=== PATIENT | female | born 1980 | race Caucasian/White ===

== ENCOUNTER 2016-12-22 07:15 | Emergency (ER) | payer BC ==
[2016-12-22] MEDS ORDERED: SODIUM CHLORIDE 0.9% 1,000 ML IV STA ×2 (07:48)
--- NOTE | 2016-12-22 07:53 | ED ---
General Adult HPI - General Chief complaint: Abdominal Pain Stated complaint: Abd Pain Time Seen by Provider: 12/22/16 07:30 Source: patient, RN notes reviewed Mode of arrival: ambulatory Limitations: no limitations - History of Present Illness Initial comments: 36 yo female with history of Crohn's disease presents with abdominal pain nausea vomiting. Patient reports 0.4 history of upper abdominal pain and bloating. Patient has had 3 episodes of vomiting, decreased appetite. Last ate yesterday evening. Patient also reports 1 episode of diarrhea which was this morning. Denies fever. Denies chest pain or shortness of breath. Patient does have history of partial bowel obstruction, and states that she has been told she has thickening of the ileum. Patient states she had a CAT scan in November which also showed gallstones. Pain is primarily epigastric. Dull aching, somewhat crampy in nature. - Related Data Home Medications Medication Instructions Recorded Confirmed Adalimumab [Humira] 40 mg SQ FR 12/22/16 12/22/16 Dicyclomine [Bentyl] 20 mg PO QID PRN 12/22/16 12/22/16 Mesalamine [Lialda] 3.6 gm PO DAILY 12/22/16 12/22/16 Multivitamins, Thera [Multivitamin 1 tab PO DAILY 12/22/16 12/22/16 (formulary)] Previous Rx's Medication Instructions Recorded predniSONE 50 mg PO DAILY #5 tab 12/22/16 Allergies Allergy/AdvReac Type Severity Reaction Status Date / Time No Known Allergies Allergy Verified 12/22/16 08:11 Review of Systems ROS Statement: Those systems with pertinent positive or pertinent negative responses have been documented in the HPI. ROS Other: All systems not noted in ROS Statement are negative. Past Medical History Additional Past Medical History / Comment(s): crohns History of Any Multi-Drug Resistant Organisms: None Reported Past Surgical History: No Surgical Hx Reported Past Psychological History: No Psychological Hx Reported Smoking Status: Current every day smoker Past Alcohol Use History: None Reported Past Drug Use History: None Reported General Exam Limitations: no limitations General appearance: alert, in no apparent distress Head exam: Present: atraumatic, normocephalic Eye exam: Present: normal appearance, PERRL ENT exam: Present: mucous membranes dry Neck exam: Present: normal inspection, full ROM. Absent: tenderness Respiratory exam: Present: normal lung sounds bilaterally. Absent: respiratory distress Cardiovascular Exam: Present: regular rate, normal rhythm GI/Abdominal exam: Present: soft, tenderness (Mild generalized tenderness to palpation, worse in the epigastrium), normal bowel sounds. Absent: guarding, rebound Extremities exam: Present: normal capillary refill. Absent: pedal edema Neurological exam: Present: alert, oriented X3. Absent: motor sensory deficit Psychiatric exam: Present: normal affect, normal mood Skin exam: Present: warm, dry, intact. Absent: cyanosis, diaphoretic Course Vital Signs 12/22/16 12/22/16 12/22/16 07:16 08:54 10:05 Temperature 97.9 F Pulse Rate 115 H 89 Respiratory 20 19 18 Rate Blood Pressure 121/78 110/71 O2 Sat by Pulse 100 99 Oximetry - Reevaluation(s) Reevaluation #1: 12/22/16 11:09 On reevaluation, patient is feeling better, no episodes of nausea and vomiting. Patient does not want to be hospitalized. She would prefer to be discharged with outpatient follow-up Medical Decision Making - Medical Decision Making 36 yo female with history of Crohn's disease presenting with pain nausea vomiting and diarrhea. Patient states she had a episode diarrhea this morning. She is passing gas. She does have pain but does not want any medication. 3 episodes of vomiting. X-ray shows partial small bowel structure versus ileus, given the history of normal bowel movement this morning this is likely only partial small bowel. Fluctuates are within normal limits. Vital signs are stable after IV hydration. Patient is encouraged to remain for IV hydration and GI consult. Patient would prefer to be discharged home with outpatient follow-up. She will be started on course of steroids. Patient states she will return the emergency Department with decrease in flatus or bowel movements as well as nausea vomiting, or fever. Patient is observed in the emergency department for 4 hours, no vomiting, no nausea. Diagnosis: Crohn's flare, partial small bowel structure - Lab Data Result diagrams: 12/22/16 07:58 12/22/16 07:58 Lab Results 12/22/16 12/22/16 12/22/16 Range/Units 07:58 07:58 07:58 WBC 12.7 H (3.8-10.6) k/uL RBC 4.69 (3.80-5.40) m/uL Hgb 14.2 (11.4-16.0) gm/dL Hct 43.7 (34.0-46.0) % MCV 93.2 (80.0-100.0) fL MCH 30.2 (25.0-35.0) pg MCHC 32.4 (31.0-37.0) g/dL RDW 14.0 (11.5-15.5) % Plt Count 357 (150-450) k/uL Neutrophils % 85 % Lymphocytes % 10 % Monocytes % 4 % Eosinophils % 1 % Basophils % 0 % Neutrophils # 10.8 H (1.3-7.7) k/uL Lymphocytes # 1.3 (1.0-4.8) k/uL Monocytes # 0.5 (0-1.0) k/uL Eosinophils # 0.1 (0-0.7) k/uL Basophils # 0.0 (0-0.2) k/uL Sodium 139 (137-145) mmol/L Potassium 4.7 (3.5-5.1) mmol/L Chloride 106 (98-107) mmol/L Carbon Dioxide 25 (22-30) mmol/L Anion Gap 8 mmol/L BUN 7 (7-17) mg/dL Creatinine 0.50 L (0.52-1.04) mg/dL Est GFR (MDRD) Af Amer >60 (>60 ml/min/1.73 sqM) Est GFR (MDRD) Non-Af >60 (>60 ml/min/1.73 sqM) Glucose 90 (74-99) mg/dL Plasma Lactic Acid Josh (0.7-2.0) mmol/L Calcium 9.0 (8.4-10.2) mg/dL Total Bilirubin 0.2 (0.2-1.3) mg/dL AST 16 (14-36) U/L ALT 27 (9-52) U/L Alkaline Phosphatase 63 (38-126) U/L Total Protein 5.6 L (6.3-8.2) g/dL Albumin 3.2 L (3.5-5.0) g/dL Amylase <30 L (30-110) U/L Lipase 35 (23-300) U/L Urine Color Urine Appearance (Clear) Urine pH (5.0-8.0) Ur Specific [place] (1.001-1.035) Urine Protein (Negative) Urine Glucose (UA) (Negative) Urine Ketones (Negative) Urine Blood (Negative) Urine Nitrite (Negative) Urine Bilirubin (Negative) Urine Urobilinogen (<2.0) mg/dL Ur Leukocyte Esterase (Negative) Urine RBC (0-5) /hpf Urine WBC (0-5) /hpf Ur Squamous Epith Cells (0-4) /hpf Urine Bacteria (None) /hpf Urine Mucus (None) /hpf Urine HCG, Qual Not Detected (Not Detectd) 12/22/16 12/22/16 Range/Units 07:58 07:58 WBC (3.8-10.6) k/uL RBC (3.80-5.40) m/uL Hgb (11.4-16.0) gm/dL Hct (34.0-46.0) % MCV (80.0-100.0) fL MCH (25.0-35.0) pg MCHC (31.0-37.0) g/dL RDW (11.5-15.5) % Plt Count (150-450) k/uL Neutrophils % % Lymphocytes % % Monocytes % % Eosinophils % % Basophils % % Neutrophils # (1.3-7.7) k/uL Lymphocytes # (1.0-4.8) k/uL Monocytes # (0-1.0) k/uL Eosinophils # (0-0.7) k/uL Basophils # (0-0.2) k/uL Sodium (137-145) mmol/L Potassium (3.5-5.1) mmol/L Chloride (98-107) mmol/L Carbon Dioxide (22-30) mmol/L Anion Gap mmol/L BUN (7-17) mg/dL Creatinine (0.52-1.04) mg/dL Est GFR (MDRD) Af Amer (>60 ml/min/1.73 sqM) Est GFR (MDRD) Non-Af (>60 ml/min/1.73 sqM) Glucose (74-99) mg/dL Plasma Lactic Acid Josh 1.2 (0.7-2.0) mmol/L Calcium (8.4-10.2) mg/dL Total Bilirubin (0.2-1.3) mg/dL AST (14-36) U/L ALT (9-52) U/L Alkaline Phosphatase (38-126) U/L Total Protein (6.3-8.2) g/dL Albumin (3.5-5.0) g/dL Amylase (30-110) U/L Lipase (23-300) U/L Urine Color Yellow Urine Appearance Cloudy H (Clear) Urine pH 7.5 (5.0-8.0) Ur Specific [place] 1.021 (1.001-1.035) Urine Protein Trace H (Negative) Urine Glucose (UA) Negative (Negative) Urine Ketones Negative (Negative) Urine Blood Negative (Negative) Urine Nitrite Negative (Negative) Urine Bilirubin 1+ H (Negative) Urine Urobilinogen <2.0 (<2.0) mg/dL Ur Leukocyte Esterase Moderate H (Negative) Urine RBC <1 (0-5) /hpf Urine WBC 6 H (0-5) /hpf Ur Squamous Epith Cells 9 H (0-4) /hpf Urine Bacteria Rare H (None) /hpf Urine Mucus Moderate H (None) /hpf Urine HCG, Qual (Not Detectd) Disposition Clinical Impression: Crohns disease Disposition: HOME SELF-CARE Condition: Good Instructions: Crohn Disease (ED) Additional Instructions: Return to the emergency department with worsening vomiting, decreased bowel movements, or fever. Prescriptions: predniSONE 50 mg PO DAILY #5 tab Referrals: Saurav Avendano NPC [REFERRING] - 1-2 days
[2016-12-22 08:15] LABS: Basophils % (A) 0 %; CH 30.8; CHCM 33.2; Eosinophils # (A) 0.1 k/uL (0-0.7); Eosinophils % (A) 1 %; HCT 43.7 % (34.0-46.0); HDW 2.25; HGB 14.2 gm/dL (11.4-16.0); Luc % (Auto) 1; Lymphocytes # (A) 1.3 k/uL (1.0-4.8); Lymphocytes % (A) 10 %; MCH 30.2 pg (25.0-35.0); MCHC 32.4 g/dL (31.0-37.0); MCV 93.2 fL (80.0-100.0); Mean Platelet Volume 8.7; Monocytes # (A) 0.5 k/uL (0-1.0); Monocytes % (A) 4 %; Neutrophils # (A) 10.8 k/uL (1.3-7.7); Neutrophils % (A) 85 %; RBC 4.69 m/uL (3.80-5.40); WBC 12.7 k/uL (3.8-10.6); WBC (Perox) 13.28
[2016-12-22 08:24] LABS: ALT 27 U/L (9-52); AST 16 U/L (14-36); Alkaline Phosphatase 63 U/L (38-126); Amylase <30 U/L (30-110); Anion Gap 8 mmol/L; Blood Urea Nitrogen 7 mg/dL (7-17); Carbon Dioxide 25 mmol/L (22-30); Chloride 106 mmol/L (98-107); Glucose 90 mg/dL (74-99); Non-African American GFR(MDRD) >60 (>60 ml/min/1.73 sqM); Potassium 4.7 mmol/L (3.5-5.1); Sodium 139 mmol/L (137-145); Total Bilirubin 0.2 mg/dL (0.2-1.3); Total Protein 5.6 g/dL (6.3-8.2)
[2016-12-22 08:37] LABS: Appearance,Urine Cloudy (Clear); Bacteria,Urine Rare /hpf; Bilirubin,Urine 1+ (Negative); Glucose,Urine (UA) Negative (Negative); Ketones,Urine Negative (Negative); Leukocyte Esterase,Urine Moderate (Negative); Mucus,Urine Moderate /hpf; Nitrite,Urine Negative (Negative); PH, Urine 7.5 (5.0-8.0); Particle Count 8578; Protein,Urine Trace (Negative); RBC,Urine <1 /hpf (0-5); Specific Gravity,Urine 1.021 (1.001-1.035); Squamous Epithelial Cell,Urine 9 /hpf (0-4); UA Billing (MACRO vs. MICRO) MICRO; Urobilinogen,Urine <2.0 mg/dL (<2.0); WBC,Urine 6 /hpf (0-5)
--- NOTE | 2016-12-22 08:43 | US ---
EXAMINATION TYPE: US gallbladder DATE OF EXAM: 12/22/2016 COMPARISON: NONE CLINICAL HISTORY: Pain. Epigastric pain, NPO EXAM MEASUREMENTS: Liver Length: 14.9 cm Gallbladder Wall: 0.2 cm CBD: 0.3 cm CHD: 0.4 cm Right Kidney: 11.7 x 5.7 x 3.9 cm Pancreas: wnl, main pancreatic duct = 2.0 mm Liver: wnl Gallbladder: mobile echogenic focus with shadowing = 1.0 cm Evidence for sonographic Ribeiro's sign: neg CBD: wnl CHD: wnl Right Kidney: wnl IMPRESSION: 1. Cholelithiasis.
--- NOTE | 2016-12-22 09:32 | XR ---
Abdomen HISTORY: Pain, Crohn's disease Frontal view of the abdomen on 2 images Correlation to prior exam 10/09/2015 There are multiple air-fluid levels with small bowel distention. Lung bases are clear. No evident pne umoperitoneum. IMPRESSION: Correlate for possible small bowel obstruction versus ileus, consider CT scan as indicate d
[2016-12-22 11:31] VITALS: BP 120/75; PULSE 83; RESP 17; TEMP 98.6
== END 2016-12-22 11:35 | disposition home or self-care (01) ==
LOC: EC 07:15
DX: K50.90 Crohn's disease, unspecified, without complications (principal); F17.200 Nicotine dependence, unspecified, uncomplicated; Z79.899 Other long term (current) drug therapy
CPT/HCPCS: 36415; 74000; 76705; 80053; 81001; 81025; 82150; 83605; 83690; 85025; 96360; 96361; 99284

== ENCOUNTER 2017-12-24 11:17 | Inpatient (IN) | payer BC ==
[2017-12-24] MEDS ORDERED: SODIUM CHLORIDE 0.9% 1,000 ML IV STA (12:40)
[2017-12-24] MEDS ORDERED: ONDANSETRON 4 MG/2 ML VIAL IVP STA (12:40)
[2017-12-24] MEDS ORDERED: MORPHINE SULFATE 4 MG/ML SYRINGE IV STA (12:40)
--- NOTE | 2017-12-24 12:42 | ED ---
General Adult HPI - General Chief complaint: Nausea/Vomiting/Diarrhea Stated complaint: Vomiting Time Seen by Provider: 12/24/17 12:30 Source: patient, RN notes reviewed Mode of arrival: ambulatory Limitations: no limitations - History of Present Illness Initial comments: Patient 37-year-old female significant past medical history for Crohn's disease , presenting to the emergency room today with a chief complaint of increased abdominal pain. Patient does admit that she was admitted one week ago because of abdominal pain and diagnosis small bowel obstruction at [facility]. Patient states that she was in the hospital for 3 days and then discharge. She states she was doing well until last night when she began having increased nausea vomiting. She does admit that she had a bowel movement this morning is passing gas. She states that she does feel some fullness in the abdomen and pain more on the left side. She states that it is a constant full and sharp pain at times. Patient denies any recent fever, chills, shortness of breath, chest pain, back pain, numbness or tingling, dysuria or hematuria, constipation or diarrhea, headaches or visual changes, or any other complaints. - Related Data Home Medications Medication Instructions Recorded Confirmed Mesalamine [Lialda] 3.6 gm PO DAILY 12/22/16 12/24/17 Multivitamins, Thera [Multivitamin 1 tab PO DAILY 12/22/16 12/24/17 (formulary)] Esomeprazole Magnesium [NexIUM] 40 mg PO DAILY 12/24/17 12/24/17 inFLIXimab [Remicade] 100 mg IV QMONTH 12/24/17 12/24/17 methylPREDNISolone [Medrol Dose See Taper PO DIRECTED 12/24/17 12/24/17 Pack] Allergies Allergy/AdvReac Type Severity Reaction Status Date / Time No Known Allergies Allergy Verified 12/24/17 14:13 Review of Systems ROS Statement: Those systems with pertinent positive or pertinent negative responses have been documented in the HPI. ROS Other: All systems not noted in ROS Statement are negative. Past Medical History Additional Past Medical History / Comment(s): crohns History of Any Multi-Drug Resistant Organisms: None Reported Past Surgical History: No Surgical Hx Reported Past Psychological History: No Psychological Hx Reported Smoking Status: Former smoker Past Alcohol Use History: Rare Past Drug Use History: None Reported General Exam - General Exam Comments Initial Comments: General: The patient is awake and alert, in no distress, and does not appear acutely ill. Eye: There is normal conjunctiva bilaterally. No signs of icterus. Ears, nose, mouth and throat: There are moist mucous membranes and no oral lesions. Neck: The neck is supple, there is no tenderness or JVD. Cardiovascular: There is a regular rate and rhythm. No murmur, rub or gallop is appreciated. Respiratory: Lungs are clear to auscultation, respirations are non-labored, breath sounds are equal. No wheezes, stridor, rales, or rhonchi. Gastrointestinal: Abdomen soft on palpation. Patient does have tenderness both left upper and lower quadrants. No rebound, guarding or CVA tenderness. Musculoskeletal: Normal ROM, no tenderness. Sensation intact. Neurological: A&O x 3. CN II-XII intact, There are no obvious motor or sensory deficits. Coordination appears grossly intact. Speech is normal. Skin: Skin is warm and dry and no rashes or lesions are noted. Psychiatric: Cooperative, appropriate mood & affect, normal judgment. Limitations: no limitations Course Vital Signs 12/24/17 12/24/17 12/24/17 12:20 14:20 15:49 Temperature 98.2 F Pulse Rate 88 86 Respiratory 20 18 16 Rate Blood Pressure 118/84 108/77 O2 Sat by Pulse 98 97 Oximetry Medical Decision Making - Medical Decision Making Patient reexamined at this time shows no signs of distress. Resting comfortably. Her blood work is reviewed and does show 26,000 white count per patient was recently admitted to [facility] for small bowel obstruction. She was placed on steroids due to Crohn's she's currently on a by mouth tapering dose at home. Patient's remaining labs reviewed. CT Shows there are dilated thickened loops of the small bowel measuring up to 4.8 cm. Distal ileum/terminal ileum demonstrates marked long segment thickening. There are areas of surrounding fluid. Findings may be on the basis of Crohn's disease although enteritis no other etiology not excluded. Case discussed with attending physician and case discussed with admitting physician or with the patient and consult GI and surgical global professional. - Lab Data Result diagrams: 12/24/17 13:15 12/24/17 13:15 Lab Results 10/19/18 10/19/18 10/19/18 Range/Units 13:15 13:15 13:15 WBC 26.2 H (3.8-10.6) k/uL RBC 4.69 (3.80-5.40) m/uL Hgb 14.2 (11.4-16.0) gm/dL Hct 41.8 (34.0-46.0) % MCV 89.2 (80.0-100.0) fL MCH 30.2 (25.0-35.0) pg MCHC 33.9 (31.0-37.0) g/dL RDW 13.4 (11.5-15.5) % Plt Count 367 (150-450) k/uL Neutrophils % 90 % Lymphocytes % 5 % Monocytes % 4 % Eosinophils % 0 % Basophils % 0 % Neutrophils # 23.5 H (1.3-7.7) k/uL Lymphocytes # 1.3 (1.0-4.8) k/uL Monocytes # 1.1 H (0-1.0) k/uL Eosinophils # 0.1 (0-0.7) k/uL Basophils # 0.0 (0-0.2) k/uL Sodium 135 L (137-145) mmol/L Potassium 4.7 (3.5-5.1) mmol/L Chloride 103 (98-107) mmol/L Carbon Dioxide 23 (22-30) mmol/L Anion Gap 9 mmol/L BUN 11 (7-17) mg/dL Creatinine 0.30 L (0.52-1.04) mg/dL Est GFR (CKD-EPI)AfAm >90 (>60 ml/min/1.73 sqM) Est GFR (CKD-EPI)NonAf >90 (>60 ml/min/1.73 sqM) Glucose 94 (74-99) mg/dL Plasma Lactic Acid Josh 1.3 (0.7-2.0) mmol/L Calcium 9.3 (8.4-10.2) mg/dL Total Bilirubin 1.1 (0.2-1.3) mg/dL AST 35 (14-36) U/L ALT 38 (9-52) U/L Alkaline Phosphatase 41 (38-126) U/L Total Protein 6.2 L (6.3-8.2) g/dL Albumin 3.4 L (3.5-5.0) g/dL Amylase 34 (30-110) U/L Lipase 21 L (23-300) U/L Urine Color Urine Appearance (Clear) Urine pH (5.0-8.0) Ur Specific [place] (1.001-1.035) Urine Protein (Negative) Urine Glucose (UA) (Negative) Urine Ketones (Negative) Urine Blood (Negative) Urine Nitrite (Negative) Urine Bilirubin (Negative) Urine Urobilinogen (<2.0) mg/dL Ur Leukocyte Esterase (Negative) Urine WBC (0-5) /hpf Ur Squamous Epith Cells (0-4) /hpf Urine Mucus (None) /hpf Urine HCG, Qual (Not Detectd) 12/24/17 12/24/17 Range/Units 14:10 14:10 WBC (3.8-10.6) k/uL RBC (3.80-5.40) m/uL Hgb (11.4-16.0) gm/dL Hct (34.0-46.0) % MCV (80.0-100.0) fL MCH (25.0-35.0) pg MCHC (31.0-37.0) g/dL RDW (11.5-15.5) % Plt Count (150-450) k/uL Neutrophils % % Lymphocytes % % Monocytes % % Eosinophils % % Basophils % % Neutrophils # (1.3-7.7) k/uL Lymphocytes # (1.0-4.8) k/uL Monocytes # (0-1.0) k/uL Eosinophils # (0-0.7) k/uL Basophils # (0-0.2) k/uL Sodium (137-145) mmol/L Potassium (3.5-5.1) mmol/L Chloride (98-107) mmol/L Carbon Dioxide (22-30) mmol/L Anion Gap mmol/L BUN (7-17) mg/dL Creatinine (0.52-1.04) mg/dL Est GFR (CKD-EPI)AfAm (>60 ml/min/1.73 sqM) Est GFR (CKD-EPI)NonAf (>60 ml/min/1.73 sqM) Glucose (74-99) mg/dL Plasma Lactic Acid Josh (0.7-2.0) mmol/L Calcium (8.4-10.2) mg/dL Total Bilirubin (0.2-1.3) mg/dL AST (14-36) U/L ALT (9-52) U/L Alkaline Phosphatase (38-126) U/L Total Protein (6.3-8.2) g/dL Albumin (3.5-5.0) g/dL Amylase (30-110) U/L Lipase (23-300) U/L Urine Color Yellow Urine Appearance Clear (Clear) Urine pH 6.5 (5.0-8.0) Ur Specific [place] 1.023 (1.001-1.035) Urine Protein 1+ H (Negative) Urine Glucose (UA) Negative (Negative) Urine Ketones 2+ H (Negative) Urine Blood Negative (Negative) Urine Nitrite Negative (Negative) Urine Bilirubin 1+ H (Negative) Urine Urobilinogen 2.0 (<2.0) mg/dL Ur Leukocyte Esterase Trace H (Negative) Urine WBC 3 (0-5) /hpf Ur Squamous Epith Cells 4 (0-4) /hpf Urine Mucus Moderate H (None) /hpf Urine HCG, Qual Not Detected (Not Detectd) Disposition Clinical Impression: Exacerbation of Crohn's disease of small intestine Disposition: ADMITTED IP TO THIS HOSP Condition: Stable Is patient prescribed a controlled substance at d/c from ED?: No Referrals: Bobby Coronel MD [Primary Care Provider] - 1-2 days Time of Disposition: 17:32
[2017-12-24 13:34] LABS: Basophils % (A) 0 %; Eosinophils # (A) 0.1 k/uL (0-0.7); Eosinophils % (A) 0 %; HCT 41.8 % (34.0-46.0); HGB 14.2 gm/dL (11.4-16.0); Lymphocytes # (A) 1.3 k/uL (1.0-4.8); Lymphocytes % (A) 5 %; MCH 30.2 pg (25.0-35.0); MCHC 33.9 g/dL (31.0-37.0); MCV 89.2 fL (80.0-100.0); Mean Platelet Volume 7.8; Monocytes # (A) 1.1 k/uL (0-1.0); Monocytes % (A) 4 %; Neutrophils # (A) 23.5 k/uL (1.3-7.7); Neutrophils % (A) 90 %; Platelet Count 367 k/uL (150-450); RBC 4.69 m/uL (3.80-5.40); RDW 13.4 % (11.5-15.5); WBC 26.2 k/uL (3.8-10.6)
[2017-12-24 14:03] LABS: ALT 38 U/L (9-52); AST 35 U/L (14-36); Albumin 3.4 g/dL (3.5-5.0); Alkaline Phosphatase 41 U/L (38-126); Amylase 34 U/L (30-110); Anion Gap 9 mmol/L; Blood Urea Nitrogen 11 mg/dL (7-17); Calcium 9.3 mg/dL (8.4-10.2); Carbon Dioxide 23 mmol/L (22-30); Chloride 103 mmol/L (98-107); Glucose 94 mg/dL (74-99); Lipase 21 U/L (23-300); Sodium 135 mmol/L (137-145); Total Bilirubin 1.1 mg/dL (0.2-1.3); Total Protein 6.2 g/dL (6.3-8.2)
[2017-12-24 14:09] LABS: Potassium 4.7 mmol/L (3.5-5.1)
[2017-12-24 14:52] LABS: Appearance,Urine Clear (Clear); Bilirubin,Urine 1+ (Negative); Blood,Urine Negative (Negative); Color,Urine Yellow; Glucose,Urine (UA) Negative (Negative); Ketones,Urine 2+ (Negative); Leukocyte Esterase,Urine Trace (Negative); Mucus,Urine Moderate /hpf; Nitrite,Urine Negative (Negative); PH, Urine 6.5 (5.0-8.0); Protein,Urine 1+ (Negative); Specific Gravity,Urine 1.023 (1.001-1.035); Squamous Epithelial Cell,Urine 4 /hpf (0-4); WBC,Urine 3 /hpf (0-5)
--- NOTE | 2017-12-24 15:32 | XR ---
EXAMINATION TYPE: XR abdomen complete w decub DATE OF EXAM: 12/24/2017 HISTORY: Pain. Technique: 4 views of the abdomen are submitted. Comparison: 12/22/2016 Findings: There is no convincing evidence of pneumoperitoneum. Dilated segment of large bowel as well as what appear to be several dilated segments of small bowel. Air-fluid levels noted. No mass effects are noted. No renal calcifications are identified. IMPRESSION: 1. Nonspecific bowel gas pattern . Possible ileus. Bowel obstruction not excluded.
--- NOTE | 2017-12-24 16:23 | CT ---
EXAMINATION TYPE: CT abdomen pelvis w con DATE OF EXAM: 12/24/2017 COMPARISON: Outside CT dated October 08, 2015 HISTORY: Generalized pain with history of bowel obstruction CT DLP: 558.8 mGycm CONTRAST: CT scan of the abdomen and pelvis is performed without Oral Contrast and with IV Contrast, patient in jected with 100 mL of Isovue 300. FINDINGS: LUNG BASES-: No visible nodule. No infiltrate. LIVER/GB: Single calcified gallstone is identified. No space occupying hepatic lesion. Biliary nitesh e is of normal caliber. PANCREAS: No inflammation. No distinct mass. SPLEEN: No splenic enlargement. No lesion seen. ADRENALS: No nodule. No thickening. KIDNEYS/BLADDER: No hydronephrosis. No nephrolithiasis. No distinct renal mass. Urinary bladder g rossly unremarkable. BOWEL: There are dilated and thickened loops of small bowel measuring up to 4.8 cm. Distal ileum/term inal ileum demonstrates marked long segment thickening. There are areas of surrounding fluid. Finding s may be on the basis of Crohn's disease although enteritis of other etiology not excluded. There is fluid distended right hemicolon. The appendix is not clearly visualized. No evidence for fistula or a bscess at this time. No evidence for free air. GENITAL ORGANS: Markedly lobulated appearance of the uterus compatible with leiomyomatous change. No distinct ovarian masses appreciated with certainty at this time. LYMPH NODES: No greater than 1cm abdominal or pelvic lymph nodes are appreciated. AORTA: No significant abnormality. OSSEOUS STRUCTURES: No significant abnormality is seen. OTHER: No significant additional abnormality is seen. IMPRESSION: 1. There are dilated and thickened loops of small bowel (predominantly ileum )measuring up to 4.8 cm. Distal ileum/terminal ileum demonstrates marked long segment thickening. There are areas of surround ing fluid. Findings may be on the basis of Crohn's disease although enteritis of other etiology not e xcluded.
[2017-12-24] MEDS ORDERED: methylPREDNISolone SOD SUCCI 125 MG/2 ML VIAL IV STA (17:29)
[2017-12-24] MEDS ORDERED: SODIUM CHLORIDE 0.9% 1,000 ML IV ONE (17:32)
[2017-12-24] MEDS ORDERED: ONDANSETRON 4 MG/2 ML VIAL IVP PRN (17:38)
[2017-12-24] MEDS ORDERED: NALOXONE 0.4 MG/ML 1 ML VIAL IV PRN (17:38)
[2017-12-24] MEDS ORDERED: MORPHINE SULFATE 4 MG/ML SYRINGE IV PRN (17:38)
[2017-12-24] MEDS: PIPERACILLIN-TAZOBACTAM 3.375 GM in DEXTROSE/WATER 1 50ML.BAG IVPB SCH (23:20)
[2017-12-24] MEDS: methylPREDNISolone SOD SUCCI 125 MG/2 ML VIAL IV SCH (23:23)
[2017-12-25] MEDS: methylPREDNISolone SOD SUCCI 125 MG/2 ML VIAL IV SCH ×4 (05:58→23:27)
[2017-12-25 06:58] LABS: Basophils % (A) 0 %; Eosinophils % (A) 0 %; HCT 34.6 % (34.0-46.0); HGB 11.7 gm/dL (11.4-16.0); Lymphocytes # (A) 0.9 k/uL (1.0-4.8); Lymphocytes % (A) 8 %; MCH 31.1 pg (25.0-35.0); MCV 91.6 fL (80.0-100.0); Mean Platelet Volume 7.6; Monocytes # (A) 0.2 k/uL (0-1.0); Monocytes % (A) 2 %; Neutrophils # (A) 10.3 k/uL (1.3-7.7); Neutrophils % (A) 91 %; Platelet Count 296 k/uL (150-450); RBC 3.77 m/uL (3.80-5.40); RDW 13.4 % (11.5-15.5); WBC 11.4 k/uL (3.8-10.6)
[2017-12-25 07:27] LABS: ALT 32 U/L (9-52); AST 15 U/L (14-36); Albumin 2.6 g/dL (3.5-5.0); Alkaline Phosphatase 40 U/L (38-126); Anion Gap 5 mmol/L; Blood Urea Nitrogen 8 mg/dL (7-17); Calcium 8.6 mg/dL (8.4-10.2); Carbon Dioxide 25 mmol/L (22-30); Chloride 107 mmol/L (98-107); Glucose 106 mg/dL (74-99); Potassium 4.5 mmol/L (3.5-5.1); Sodium 137 mmol/L (137-145); Total Bilirubin 0.6 mg/dL (0.2-1.3); Total Protein 4.8 g/dL (6.3-8.2)
[2017-12-25] MEDS: INSULIN ASPART 100 UNIT/ML 1 ML 10 ML VIAL SQ SCH ×2 (07:27→11:17)
[2017-12-25 07:28] LABS: Glucose,Whole Blood 107 mg/dL (75-99)
[2017-12-25] MEDS: PIPERACILLIN-TAZOBACTAM 3.375 GM in DEXTROSE/WATER 1 50ML.BAG IVPB SCH ×3 (08:01→23:27)
--- NOTE | 2017-12-25 09:22 | P.GSCN ---
History of Present Illness Consult date: 12/25/17 Reason for Consult: Crohn's disease possible obstruction Requesting physician: Jacques Rocha History of present illness: Thank you very much for asking us to see Ms. Geronimo she is a very pleasant 37- year-old white female who was been known to have Crohn's ileitis for 4 to 5 years now. Has been no treated medically all along not requiring any surgical intervention. She in fact also has been seen in addition to local woven label designer more recently at [facility] because of progressive disease. Indications are as listed including MesAlamine, prednisone and IV Remicade . She was recently hospitalized at [facility] for symptoms of nausea vomiting and was placed according to her on IV steroids with improvement after 3 days and she was discharged. She states she did well at home until yesterday she developed again nausea vomiting abdominal pain and cramps. She presented to the emergency room here. Was found on computed tomography scan to have some dilated loops of small bowel with thickening of mostly in the terminal ileum area. 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 She did see a surgeon there and there is potential for a resective therapy there. She in fact has an appointment with the surgeon there in the first week of January. Since admission patient is being feeling much better. The abdominal cramps are mostly resolved. Has no nausea or vomiting but she is not particularly hungry. Has been passing some flatus but no bowel movement. No fever or chills. Did have a markedly elevated WBC and was placed on IV antibiotics in addition to the steroids. Past history well-documented. No previous surgeries. Medications as listed. ALLERGIES none known. Social history family history well-documented. Patient is . Denies alcohol. Former smoker. Systems review as above. No cardiac or respiratory problem. No vaginal discharge or bleeding. No urinary symptoms. No ONLINE ADVERTISING DIRECTOR problems. On examination the patient is well-built well-nourished slim in no acute distress. Hydration appears satisfactory color is good. Head and neck are normal. Heart and lungs are clear. Abdomen is quite soft nondistended with minimal tenderness but no guarding or rebound or rigidity. No mass or organomegaly or hernias noted. Laboratory studies were noted. WBC was elevated. Hemoglobin is normal at 14 g percent. Computed tomography scan and abdominal x-rays were reviewed. Impression. Exacerbation of Crohn's ileitis. Question of the stricture. Symptoms improved since admission. No acute surgical abdomen at this time. Recommendation. Agree with plans for GI consult. Continued medical management. Suspect in view of her history of a stricture she may need surgical intervention on an elective basis and she plans to follow up at [facility] for this. Appreciate again very much the opportunity to see this pleasant young lady in consultation. Past Medical History Additional Past Medical History / Comment(s): crohns History of Any Multi-Drug Resistant Organisms: None Reported Past Surgical History: No Surgical Hx Reported Past Psychological History: No Psychological Hx Reported Smoking Status: Never smoker Past Alcohol Use History: Rare Past Drug Use History: None Reported Medications and Allergies Home Medications Medication Instructions Recorded Confirmed Type Mesalamine [Lialda] 3.6 gm PO DAILY 12/22/16 12/24/17 History Multivitamins, Thera [Multivitamin 1 tab PO DAILY 12/22/16 12/24/17 History (formulary)] Esomeprazole Magnesium [NexIUM] 40 mg PO DAILY 12/24/17 12/24/17 History inFLIXimab [Remicade] 100 mg IV QMONTH 12/24/17 12/24/17 History methylPREDNISolone [Medrol Dose See Taper PO DIRECTED 12/24/17 12/24/17 History Pack] Allergies Allergy/AdvReac Type Severity Reaction Status Date / Time No Known Allergies Allergy Verified 12/24/17 14:13 Surgical - Exam Vital Signs Temp Pulse Resp BP Pulse Ox 98.2 F 88 20 118/84 98 12/24/17 12:20 12/24/17 12:20 12/24/17 12:20 12/24/17 12:20 12/24/17 12:20 Results - Labs 12/25/17 06:07 12/25/17 06:07 Abnormal Lab Results - Last 24 Hours (Table) 12/24/17 12/24/17 12/24/17 Range/Units 13:15 13:15 14:10 WBC 26.2 H (3.8-10.6) k/uL RBC (3.80-5.40) m/uL Neutrophils # 23.5 H (1.3-7.7) k/uL Lymphocytes # (1.0-4.8) k/uL Monocytes # 1.1 H (0-1.0) k/uL Sodium 135 L (137-145) mmol/L Creatinine 0.30 L (0.52-1.04) mg/dL Glucose (74-99) mg/dL POC Glucose (mg/dL) (75-99) mg/dL Total Protein 6.2 L (6.3-8.2) g/dL Albumin 3.4 L (3.5-5.0) g/dL Lipase 21 L (23-300) U/L Urine Protein 1+ H (Negative) Urine Ketones 2+ H (Negative) Urine Bilirubin 1+ H (Negative) Ur Leukocyte Esterase Trace H (Negative) Urine Mucus Moderate H (None) /hpf 12/25/17 12/25/17 12/25/17 Range/Units 06:07 06:07 07:26 WBC 11.4 H (3.8-10.6) k/uL RBC 3.77 L (3.80-5.40) m/uL Neutrophils # 10.3 H (1.3-7.7) k/uL Lymphocytes # 0.9 L (1.0-4.8) k/uL Monocytes # (0-1.0) k/uL Sodium (137-145) mmol/L Creatinine 0.38 L (0.52-1.04) mg/dL Glucose 106 H (74-99) mg/dL POC Glucose (mg/dL) 107 H (75-99) mg/dL Total Protein 4.8 L (6.3-8.2) g/dL Albumin 2.6 L (3.5-5.0) g/dL Lipase (23-300) U/L Urine Protein (Negative) Urine Ketones (Negative) Urine Bilirubin (Negative) Ur Leukocyte Esterase (Negative) Urine Mucus (None) /hpf Diabetes panel 12/24/17 12/25/17 Range/Units 13:15 06:07 Sodium 135 L 137 (137-145) mmol/L Potassium 4.7 4.5 (3.5-5.1) mmol/L Chloride 103 107 (98-107) mmol/L Carbon Dioxide 23 25 (22-30) mmol/L BUN 11 8 (7-17) mg/dL Creatinine 0.30 L 0.38 L (0.52-1.04) mg/dL Glucose 94 106 H (74-99) mg/dL Calcium 9.3 8.6 (8.4-10.2) mg/dL AST 35 15 (14-36) U/L ALT 38 32 (9-52) U/L Alkaline Phosphatase 41 40 (38-126) U/L Total Protein 6.2 L 4.8 L (6.3-8.2) g/dL Albumin 3.4 L 2.6 L (3.5-5.0) g/dL Calcium panel 12/24/17 12/25/17 Range/Units 13:15 06:07 Calcium 9.3 8.6 (8.4-10.2) mg/dL Albumin 3.4 L 2.6 L (3.5-5.0) g/dL Pituitary panel 12/24/17 12/25/17 Range/Units 13:15 06:07 Sodium 135 L 137 (137-145) mmol/L Potassium 4.7 4.5 (3.5-5.1) mmol/L Chloride 103 107 (98-107) mmol/L Carbon Dioxide 23 25 (22-30) mmol/L BUN 11 8 (7-17) mg/dL Creatinine 0.30 L 0.38 L (0.52-1.04) mg/dL Glucose 94 106 H (74-99) mg/dL Calcium 9.3 8.6 (8.4-10.2) mg/dL Adrenal panel 12/24/17 12/25/17 Range/Units 13:15 06:07 Sodium 135 L 137 (137-145) mmol/L Potassium 4.7 4.5 (3.5-5.1) mmol/L Chloride 103 107 (98-107) mmol/L Carbon Dioxide 23 25 (22-30) mmol/L BUN 11 8 (7-17) mg/dL Creatinine 0.30 L 0.38 L (0.52-1.04) mg/dL Glucose 94 106 H (74-99) mg/dL Calcium 9.3 8.6 (8.4-10.2) mg/dL Total Bilirubin 1.1 0.6 (0.2-1.3) mg/dL AST 35 15 (14-36) U/L ALT 38 32 (9-52) U/L Alkaline Phosphatase 41 40 (38-126) U/L Total Protein 6.2 L 4.8 L (6.3-8.2) g/dL Albumin 3.4 L 2.6 L (3.5-5.0) g/dL
[2017-12-25 11:05] LABS: Glucose,Whole Blood 101 mg/dL (75-99)
[2017-12-25] MEDS: SODIUM CHLORIDE 0.9% 1,000 ML IV SCH (15:58)
[2017-12-25 22:27] VITALS: TEMP 98.1
[2017-12-26] MEDS: SODIUM CHLORIDE 0.9% 1,000 ML IV SCH ×2 (05:42→07:01)
[2017-12-26] MEDS: methylPREDNISolone SOD SUCCI 125 MG/2 ML VIAL IV SCH ×2 (06:02→12:00)
[2017-12-26] MEDS: PIPERACILLIN-TAZOBACTAM 3.375 GM in DEXTROSE/WATER 1 50ML.BAG IVPB SCH (08:53)
[2017-12-26 09:53] LABS: Basophils % (A) 0 %; Eosinophils % (A) 0 %; HGB 12.1 gm/dL (11.4-16.0); Lymphocytes # (A) 0.9 k/uL (1.0-4.8); Lymphocytes % (A) 6 %; MCH 30.1 pg (25.0-35.0); MCHC 32.8 g/dL (31.0-37.0); MCV 91.6 fL (80.0-100.0); Mean Platelet Volume 8.4; Monocytes # (A) 0.3 k/uL (0-1.0); Monocytes % (A) 2 %; Neutrophils # (A) 15.2 k/uL (1.3-7.7); Neutrophils % (A) 92 %; Platelet Count 299 k/uL (150-450); RBC 4.03 m/uL (3.80-5.40); RDW 13.2 % (11.5-15.5); WBC 16.5 k/uL (3.8-10.6)
[2017-12-26 10:11] LABS: Anion Gap 8 mmol/L; Blood Urea Nitrogen 8 mg/dL (7-17); Carbon Dioxide 25 mmol/L (22-30); Chloride 103 mmol/L (98-107); Glucose 126 mg/dL (74-99); Potassium 4.2 mmol/L (3.5-5.1); Sodium 136 mmol/L (137-145)
--- NOTE | 2017-12-26 11:36 | P.HPIM ---
History of Present Illness H&P Date: 12/25/17 Chief Complaint: Crohn's disease; possible obstruction 37-year-old white female who was been known to have Crohn's ileitis for 4 to 5 years now. Has been no treated medically all along not requiring any surgical intervention. She in fact also has been seen in addition to local package line operator more recently at [facility] because of progressive disease. Indications are as listed including MesAlamine, prednisone and IV Remicade . She was recently hospitalized at [facility] for symptoms of nausea vomiting and was placed according to her on IV steroids with improvement after 3 days and she was discharged. She states she did well at home until yesterday she developed again nausea vomiting abdominal pain and cramps. She presented to the emergency room here. Was found on computed tomography scan to have some dilated loops of small bowel with thickening of mostly in the terminal ileum area. 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 She did see a surgeon there and there is potential for a resective therapy there. She in fact has an appointment with the surgeon there in the first week of January. Since admission patient is being feeling much better. The abdominal cramps are mostly resolved. Has no nausea or vomiting but she is not particularly hungry. Has been passing some flatus but no bowel movement. No fever or chills. Did have a markedly elevated WBC and was placed on IV antibiotics in addition to the steroids. Review of Systems Constitutional: Reports anorexia, Reports poor appetite, Denies fever, Denies night sweats Eyes: denies blurred vision, denies diplopia Ears, nose, mouth and throat: Denies epistaxis, Denies headache, Denies sore throat Cardiovascular: Denies dyspnea on exertion, Denies irregular heart beat, Denies shortness of breath Respiratory: Denies cough with sputum, Denies dyspnea, Denies wheezing Gastrointestinal: Reports abdominal pain, Reports loss of appetite, Reports nausea, Reports vomiting, Denies constipation, Denies diarrhea, Denies indigestion Genitourinary: Denies difficulty voiding, Denies dysuria, Denies hematuria Musculoskeletal: Denies frequent falls, Denies muscle cramps, Denies muscle weakness Hematologic/Lymphatic: Denies easy bleeding Allergic/Immunologic: Denies allergic rhinitis, Denies persistent infections Past Medical History Additional Past Medical History / Comment(s): crohns History of Any Multi-Drug Resistant Organisms: None Reported Past Surgical History: No Surgical Hx Reported Past Psychological History: No Psychological Hx Reported Smoking Status: Never smoker Past Alcohol Use History: Rare Past Drug Use History: None Reported Medications and Allergies Home Medications Medication Instructions Recorded Confirmed Type Mesalamine [Lialda] 3.6 gm PO DAILY 12/22/16 12/24/17 History Multivitamins, Thera [Multivitamin 1 tab PO DAILY 12/22/16 12/24/17 History (formulary)] Esomeprazole Magnesium [NexIUM] 40 mg PO DAILY 12/24/17 12/24/17 History inFLIXimab [Remicade] 100 mg IV QMONTH 12/24/17 12/24/17 History methylPREDNISolone [Medrol Dose See Taper PO DIRECTED 12/24/17 12/24/17 History Pack] Ondansetron Odt [Zofran ODT] 4 mg PO Q8HR PRN #10 tab 12/26/17 Rx metroNIDAZOLE [Flagyl] 500 mg PO TID #42 tab 12/26/17 Rx predniSONE 20 mg PO BID #14 tab 12/26/17 Rx Allergies Allergy/AdvReac Type Severity Reaction Status Date / Time No Known Allergies Allergy Verified 12/24/17 14:13 Physical Exam Vitals: Vital Signs Temp Pulse Pulse Resp BP BP Pulse Ox 12/25/17 05:17 98.2 F 88 16 108/68 93 L 12/24/17 21:51 98.3 F 88 16 118/79 95 12/24/17 20:43 98.7 F 84 15 115/78 97 12/24/17 18:54 99.1 F 75 18 110/72 98 12/24/17 15:49 86 16 108/77 97 12/24/17 14:20 18 Intake and Output 12/24/17 12/25/17 12/25/17 22:59 06:59 14:59 Intake Total 400 Balance 400 Intake: Intake, IV Titration 400 Amount Sodium Chloride 0.9% 1, 400 000 ml @ 100 mls/hr IV . Q10H ONE Rx#:[id number] Other: Voiding Method Toilet Toilet # Voids 0 Weight 63.503 kg - Constitutional General appearance: Present: average body habitus, cooperative, no acute distress - EENT Eyes: Present: anicteric sclerae, EOMI, PERRLA, normal appearance ENT: Present: hearing grossly normal, normal oropharynx Ears: bilateral: normal - Neck Neck: Present: normal ROM. Absent: lymphadenopathy, rigidity, thyromegaly Carotids: negative: bruit present Thyroid: bilateral: normal size, negative: enlarged, nodule - Respiratory Respiratory: bilateral: CTA, negative: rales, rhonchi, wheezing - Cardiovascular Rhythm: regular Heart sounds: normal: S1, S2 Abnormal Heart Sounds: Absent: systolic murmur, diastolic murmur - Gastrointestinal General gastrointestinal: Present: normal bowel sounds, soft. Absent: distended , organomegaly, tenderness - Genitourinary Genitourinary Comment(s): deferred - Integumentary Integumentary: Present: normal turgor. Absent: jaundiced, rash, ulcer - Neurologic Neurologic: Present: CNII-XII intact. Absent: focal deficits - Musculoskeletal Musculoskeletal: Present: gait normal, strength equal bilaterally - Psychiatric Psychiatric: Present: A&O x's 3, appropriate affect, intact judgment & insight Results CBC & Chem 7: 12/26/17 08:32 12/26/17 08:32 Labs: Abnormal Lab Results - Last 24 Hours (Table) 12/24/17 12/24/17 12/24/17 Range/Units 13:15 13:15 14:10 WBC 26.2 H (3.8-10.6) k/uL RBC (3.80-5.40) m/uL Neutrophils # 23.5 H (1.3-7.7) k/uL Lymphocytes # (1.0-4.8) k/uL Monocytes # 1.1 H (0-1.0) k/uL Sodium 135 L (137-145) mmol/L Creatinine 0.30 L (0.52-1.04) mg/dL Glucose (74-99) mg/dL POC Glucose (mg/dL) (75-99) mg/dL Total Protein 6.2 L (6.3-8.2) g/dL Albumin 3.4 L (3.5-5.0) g/dL Lipase 21 L (23-300) U/L Urine Protein 1+ H (Negative) Urine Ketones 2+ H (Negative) Urine Bilirubin 1+ H (Negative) Ur Leukocyte Esterase Trace H (Negative) Urine Mucus Moderate H (None) /hpf 12/25/17 12/25/17 12/25/17 Range/Units 06:07 06:07 07:26 WBC 11.4 H (3.8-10.6) k/uL RBC 3.77 L (3.80-5.40) m/uL Neutrophils # 10.3 H (1.3-7.7) k/uL Lymphocytes # 0.9 L (1.0-4.8) k/uL Monocytes # (0-1.0) k/uL Sodium (137-145) mmol/L Creatinine 0.38 L (0.52-1.04) mg/dL Glucose 106 H (74-99) mg/dL POC Glucose (mg/dL) 107 H (75-99) mg/dL Total Protein 4.8 L (6.3-8.2) g/dL Albumin 2.6 L (3.5-5.0) g/dL Lipase (23-300) U/L Urine Protein (Negative) Urine Ketones (Negative) Urine Bilirubin (Negative) Ur Leukocyte Esterase (Negative) Urine Mucus (None) /hpf 12/25/17 Range/Units 11:04 WBC (3.8-10.6) k/uL RBC (3.80-5.40) m/uL Neutrophils # (1.3-7.7) k/uL Lymphocytes # (1.0-4.8) k/uL Monocytes # (0-1.0) k/uL Sodium (137-145) mmol/L Creatinine (0.52-1.04) mg/dL Glucose (74-99) mg/dL POC Glucose (mg/dL) 101 H (75-99) mg/dL Total Protein (6.3-8.2) g/dL Albumin (3.5-5.0) g/dL Lipase (23-300) U/L Urine Protein (Negative) Urine Ketones (Negative) Urine Bilirubin (Negative) Ur Leukocyte Esterase (Negative) Urine Mucus (None) /hpf Assessment and Plan Assessment: 1. Acute exacerbation Crohn's disease - Patient is admitted to MedSurg floor - Remains on IVs Solu-Medrol 60 mg every 8 hours; patient was given a bolus loss of methylprednisolone on 25 mg 1 - Consult GI for further recommendations on Crohn's flareup - Continue with IV fluids half-normal saline at 75 mL an hour - We will monitor strict ANTONIETTA's, daily weights, renal function and electrolytes 2. Small bowel stricture - Surgery is consulted; admonitions are noted and appreciated - Patient is recommended to follow-up with the surgeon attending [facility] as outpatient for possible elective surgery 3. Marked leukocytosis/sepsis - We will obtain pancultures; patient remains on IV Zosyn 3.375 g every 8 hours - We will consult ID for further recommendations 4. Possible UTI; patient remains on IV Zosyn; urine culture is pending; will adjust antibiotic therapy once her cultures available 5. Intractable nausea and vomiting; markedly improved - Patient is nothing by mouth at this time ; has been cleared by surgery for a clear liquid diet - Await recommendations from GI service 6. DVT prophylaxis CODE STATUS; full code Time with Patient: Greater than 30
[2017-12-26 12:50] VITALS: BP 116/77; PULSE 52; RESP 20
--- NOTE | 2017-12-26 22:16 | P.CONS ---
History of Present Illness - Reason for Consult Consult date: 12/26/17 - Chief Complaint Abdominal pain - History of Present Illness 37-year-old female is a known history of Crohn's disease receiving immunomodulation therapy with Remicade in the outpatient setting. Recently had an increasing amount of abdominal pain mostly in the right lower quadrant associated with nausea and emesis. She presented to her local hospital and was given a Medrol Dosepak. Even before the Dosepak was completed she had significant recurrence of her abdominal pain as as with nausea and emesis and dry heaves. Or the lack of improvement she presented to our emergency center was admitted. With hydration and intravenous steroid therapy she is now markedly improved. There is an expected leukocytosis and for this the infectious diseases consultation was requested. The patient does receive her infusions in the local infusion clinic. She has been evaluated [facility]. There is an MR E scheduled in the near future as well as a surgical evaluation for potential worsening stricture in her ileus that has been noted by recent evaluations including computed tomography scan. She's been seen by surgery locally and there is no acute abdomen requiring surgical intervention at this time. Review of Systems HEENT:Denies headache or acute visual change. Denies sinus or mouth discomforts. Denies neck stiffness or pain. Denies significant oral cavity pain. Denies difficulty on swallowing. Lungs: Denies significant shortness of breath, cough, sputum production, or hemoptysis. Cardiovascular: Denies significant shortness of breath, chest pain, chest wall pain, orthopnea, dyspnea on exertion, syncope Gastrointestinal: As per the HPI had nausea and emesis and abdominal pain admission without melena hematochezia or hematemesis. Musculoskeletal: denies significant myalgias or arthralgias. No new joint swelling. Denies new back pain. Skin: Denies new rash or lesions. No new ulcers or wounds are related.. Neuro: Denies headache or visual change. Denies any new onset weakness or difficulty with ambulation. Denies falls or seizures. Psychiatric:Denies anxiety or depression. Endocrine: Denies significant fatigue, denies significant weight loss or weight gain. Past Medical History Additional Past Medical History / Comment(s): crohns History of Any Multi-Drug Resistant Organisms: None Reported Past Surgical History: No Surgical Hx Reported Past Psychological History: No Psychological Hx Reported Additional Psychological History / Comment(s): 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 2 pet Cats at home Smoking Status: Never smoker Past Alcohol Use History: Rare Past Drug Use History: None Reported Medications and Allergies Home Medications and Allergies Comment(s): Please see the medication list Home Medications Medication Instructions Recorded Confirmed Type Mesalamine [Lialda] 3.6 gm PO DAILY 12/22/16 12/24/17 History Multivitamins, Thera [Multivitamin 1 tab PO DAILY 12/22/16 12/24/17 History (formulary)] Esomeprazole Magnesium [NexIUM] 40 mg PO DAILY 12/24/17 12/24/17 History inFLIXimab [Remicade] 100 mg IV QMONTH 12/24/17 12/24/17 History methylPREDNISolone [Medrol Dose See Taper PO DIRECTED 12/24/17 12/24/17 History Pack] Ondansetron Odt [Zofran ODT] 4 mg PO Q8HR PRN #10 tab 12/26/17 Rx Ondansetron Odt [Zofran ODT] 4 mg PO Q8HR PRN #10 tab 12/26/17 Rx metroNIDAZOLE [Flagyl] 500 mg PO TID #42 tab 12/26/17 Rx metroNIDAZOLE [Flagyl] 500 mg PO TID #42 tab 12/26/17 Rx predniSONE 20 mg PO BID #14 tab 12/26/17 Rx predniSONE 20 mg PO BID #14 tab 12/26/17 Rx Allergies Allergy/AdvReac Type Severity Reaction Status Date / Time No Known Allergies Allergy Verified 12/24/17 14:13 Physical Exam Vitals: Vital Signs Temp Pulse Resp BP Pulse Ox 12/26/17 11:30 98.1 F 52 L 20 116/77 97 12/26/17 05:00 98.1 F 66 16 112/73 97 Intake and Output 12/26/17 12/26/17 12/26/17 06:59 14:59 22:59 Intake Total 300 Balance 300 Intake: Intake, IV Titration 300 Amount Sodium Chloride 0.9% 1, 300 000 ml @ 75 mls/hr IV . [id number] Rx#:[id number] Other: Voiding Method Toilet # Voids 1 # Bowel Movements 1 Pleasant 37-year-old woman who now is feeling considerably better abdominal pain is improved HEENT: Anicteric conjunctiva are pink and moist nasal mucosa grossly intact without significant lesions, there is no thrush. Neck: The neck is supple without significant lymphadenopathy or thyromegaly. Lungs: Good bilateral air entry without significant crackles or wheezing. There is no significant bronchial sounds. There is no egophony or dullness. Heart: Regular rate and rhythm with an audible S1-S2, no S3 no S4. There is no significant murmur click or rub, PMI was nondisplaced. Abdomen: Positive bowel sounds soft and minimal tenderness right lower quadrant without palpable masses or organomegaly. There was no guarding or rebound. Extremities: The upper extremities have excellent pulses they are symmetric, no significant petechiae or telangiectasia. No splinter hemorrhages were noted. The lower extremities are free from significant edema. The peripheral pulses were 2+ and symmetric. Neuro: Awake alert oriented to person place and time. There are no acute new gross focal sensory motor deficits. Results CBC & Chem 7: 12/26/17 08:32 12/26/17 08:32 Labs: Abnormal Lab Results - Last 24 Hours (Table) 12/26/17 12/26/17 Range/Units 08:32 08:32 WBC 16.5 H (3.8-10.6) k/uL Neutrophils # 15.2 H (1.3-7.7) k/uL Lymphocytes # 0.9 L (1.0-4.8) k/uL Sodium 136 L (137-145) mmol/L Creatinine 0.47 L (0.52-1.04) mg/dL Glucose 126 H (74-99) mg/dL Laboratory Results WBC 16.5 k/uL (3.8-10.6) H 12/26/17 08:32 RBC 4.03 m/uL (3.80-5.40) 12/26/17 08:32 Hgb 12.1 gm/dL (11.4-16.0) 12/26/17 08:32 Hct 37.0 % (34.0-46.0) 12/26/17 08:32 MCV 91.6 fL (80.0-100.0) 12/26/17 08:32 MCH 30.1 pg (25.0-35.0) 12/26/17 08:32 MCHC 32.8 g/dL (31.0-37.0) 12/26/17 08:32 RDW 13.2 % (11.5-15.5) 12/26/17 08:32 Plt Count 299 k/uL (150-450) 12/26/17 08:32 Neutrophils % 92 % 12/26/17 08:32 Lymphocytes % 6 % 12/26/17 08:32 Monocytes % 2 % 12/26/17 08:32 Eosinophils % 0 % 12/26/17 08:32 Basophils % 0 % 12/26/17 08:32 Neutrophils # 15.2 k/uL (1.3-7.7) H 12/26/17 08:32 Lymphocytes # 0.9 k/uL (1.0-4.8) L 12/26/17 08:32 Monocytes # 0.3 k/uL (0-1.0) 12/26/17 08:32 Eosinophils # 0.0 k/uL (0-0.7) 12/26/17 08:32 Basophils # 0.0 k/uL (0-0.2) 12/26/17 08:32 Sodium 136 mmol/L (137-145) L 12/26/17 08:32 Potassium 4.2 mmol/L (3.5-5.1) 12/26/17 08:32 Chloride 103 mmol/L (98-107) 12/26/17 08:32 Carbon Dioxide 25 mmol/L (22-30) 12/26/17 08:32 Anion Gap 8 mmol/L 12/26/17 08:32 BUN 8 mg/dL (7-17) 12/26/17 08:32 Creatinine 0.47 mg/dL (0.52-1.04) L 12/26/17 08:32 Est GFR (CKD-EPI)AfAm >90 (>60 ml/min/1.73 sqM) 12/26/17 08:32 Est GFR (CKD-EPI)NonAf >90 (>60 ml/min/1.73 sqM) 12/26/17 08:32 Glucose 126 mg/dL (74-99) H 12/26/17 08:32 POC Glucose (mg/dL) 101 mg/dL (75-99) H 12/25/17 11:04 POC Glu Ex Chef Mickie Phelps 12/25/17 11:04 Plasma Lactic Acid Josh 1.3 mmol/L (0.7-2.0) 12/24/17 13:15 Calcium 9.0 mg/dL (8.4-10.2) 12/26/17 08:32 Total Bilirubin 0.6 mg/dL (0.2-1.3) 12/25/17 06:07 AST 15 U/L (14-36) 12/25/17 06:07 ALT 32 U/L (9-52) 12/25/17 06:07 Alkaline Phosphatase 40 U/L (38-126) 12/25/17 06:07 Total Protein 4.8 g/dL (6.3-8.2) L 12/25/17 06:07 Albumin 2.6 g/dL (3.5-5.0) L 12/25/17 06:07 Amylase 34 U/L (30-110) 12/24/17 13:15 Lipase 21 U/L (23-300) L 12/24/17 13:15 Urine Color Yellow 12/24/17 14:10 Urine Appearance Clear (Clear) 12/24/17 14:10 Urine pH 6.5 (5.0-8.0) 12/24/17 14:10 Ur Specific [place] 1.023 (1.001-1.035) 12/24/17 14:10 Urine Protein 1+ (Negative) H 12/24/17 14:10 Urine Glucose (UA) Negative (Negative) 12/24/17 14:10 Urine Ketones 2+ (Negative) H 12/24/17 14:10 Urine Blood Negative (Negative) 12/24/17 14:10 Urine Nitrite Negative (Negative) 12/24/17 14:10 Urine Bilirubin 1+ (Negative) H 12/24/17 14:10 Urine Urobilinogen 2.0 mg/dL (<2.0) 12/24/17 14:10 Ur Leukocyte Esterase Trace (Negative) H 12/24/17 14:10 Urine WBC 3 /hpf (0-5) 12/24/17 14:10 Ur Squamous Epith Cells 4 /hpf (0-4) 12/24/17 14:10 Urine Mucus Moderate /hpf (None) H 12/24/17 14:10 Urine HCG, Qual Not Detected (Not Detectd) 12/24/17 14:10 Assessment and Plan (1) Abdominal pain Status: Acute Code(s): R10.9 - UNSPECIFIED ABDOMINAL PAIN SNOMED Code(s): 10929712 (2) Exacerbation of Crohn's disease of small intestine Narrative/Plan: 37-year-old woman who receives Remicade the local infusion clinic for her Crohn' s disease that has not responded to other treatments presents to a local emergency center because of abdominal pain and nausea and emesis. With hydration in the Medrol Dosepak she had some improvement. However before the Dosepak. He completed she has difficulty recurrence of her symptoms and presented to the [facility] emergency center. With hydration and higher doses of steroids she has now markedly improved. Nausea and emesis have resolved with Zofran of the above treatments. Her pain is considerably improved. She looks more to going home. She reports we will be having ongoing gastroenterology evaluation and specialized Crohn's surgery evaluation the near future. In the meantime she'll receive prednisone 20 mg twice a day for the next 3 days and then daily until she is evaluated by the surgeon and hotel housekeeper. If she has nausea Zofran ODT has been requested. Metronidazole has also been requested for the next short period of time for treatment of colitis as well as its anti- inflammatory effects with inflammatory bowel disease. The patient was contact the office with any further issues. Status: Acute Code(s): K50.00 - CROHN'S DISEASE OF SMALL INTESTINE WITHOUT COMPLICATIONS SNOMED Code(s): 640947268
--- NOTE | 2017-12-27 04:26 | P.CONS ---
History of Present Illness - Reason for Consult Consult date: 12/25/17 Nausea, vomiting and abdominal pain Requesting physician: Jacques Rocha - Chief Complaint Nausea, vomiting and abdominal pain - History of Present Illness The patient is a pleasant 37-year-old female with a known history of stricturing small bowel Crohn's disease currently being followed up with gastroenterology in [place] as well as with the [facility] IBD team who presents with complaints of nausea and vomiting as well as abdominal pain. The patient has a history of Crohn's ileitis which has not required surgery in the past, but has required steroid therapy. She is currently maintained on Remicade and mesalamine. She had 1 visit with IBD at [facility] at which time she was referred to the surgical team, for which she has an appointment. The patient has a known history of stricturing disease located primarily in her ileum and she is scheduled to follow up with surgery for consultation on possible need for surgical intervention. She reports episodes of nausea and vomiting with abdominal pain described as mainly cramping and worse in the right lower quadrant of the abdomen. She reports that these have improved with steroid therapy for which she is currently on a taper as well as conservative treatment with Zofran. Currently she is reporting no symptoms of nausea and vomiting and asking for food. She had a CT of the abdomen which showed distal ileum thickening as well as small bowel dilation. Hemoglobin on presentation was 11.7 with a white count of 11.4. She denies any rashes, pain in her eyes or injection. Review of Systems Constitutional: Denies any fatigue, change in weight Eyes: Denies any change in vision, pain denies Nose: Denies any congestion, rhinorrhea Ears: Denies any change in hearing, new onset tinnitus Lungs: Denies any wheezing, shortness of breath, cough, or hemoptysis Cardiac: Denies any pain in chest, shortness of breath, lower extremity swelling Abdomen: As per history of present illness Skin: Denies any new rashes or pruritus Urine: Denies any dysuria or hematuria Neuro: Denies any change in mental status, new focal deficits Past Medical History Additional Past Medical History / Comment(s): crohns History of Any Multi-Drug Resistant Organisms: None Reported Past Surgical History: No Surgical Hx Reported Past Psychological History: No Psychological Hx Reported Smoking Status: Never smoker Past Alcohol Use History: Rare Past Drug Use History: None Reported Additional History: Family history: Reviewed with the patient and noncontributory to the patient's current medical presentation. Medications and Allergies Home Medications Medication Instructions Recorded Confirmed Type Mesalamine [Lialda] 3.6 gm PO DAILY 12/22/16 12/24/17 History Multivitamins, Thera [Multivitamin 1 tab PO DAILY 12/22/16 12/24/17 History (formulary)] Esomeprazole Magnesium [NexIUM] 40 mg PO DAILY 12/24/17 12/24/17 History inFLIXimab [Remicade] 100 mg IV QMONTH 12/24/17 12/24/17 History methylPREDNISolone [Medrol Dose See Taper PO DIRECTED 12/24/17 12/24/17 History Pack] Ondansetron Odt [Zofran ODT] 4 mg PO Q8HR PRN #10 tab 12/26/17 Rx Ondansetron Odt [Zofran ODT] 4 mg PO Q8HR PRN #10 tab 12/26/17 Rx metroNIDAZOLE [Flagyl] 500 mg PO TID #42 tab 12/26/17 Rx metroNIDAZOLE [Flagyl] 500 mg PO TID #42 tab 12/26/17 Rx predniSONE 20 mg PO BID #14 tab 12/26/17 Rx predniSONE 20 mg PO BID #14 tab 12/26/17 Rx Allergies Allergy/AdvReac Type Severity Reaction Status Date / Time No Known Allergies Allergy Verified 12/24/17 14:13 Physical Exam Vitals: Vital Signs Temp Pulse Resp BP Pulse Ox 12/25/17 21:00 98.1 F 80 16 135/81 95 12/25/17 12:30 98.3 F 80 20 114/73 95 12/25/17 05:17 98.2 F 88 16 108/68 93 L Intake and Output 12/25/17 12/25/17 12/26/17 14:59 22:59 06:59 Intake Total 940 Balance 940 Intake: Intake, IV Titration 350 Amount Sodium Chloride 0.9% 1, 350 000 ml @ 75 mls/hr IV . [id number] [facility] Rx#:[id number] Oral 590 Other: Voiding Method Toilet Toilet # Voids 2 # Bowel Movements 0 Constitutional: Lying in bed in no apparent distress Head: normocephalic/atraumatic Eyes: No icterus, no injection Mouth: Moist mucous membranes Nose: No discharge noted Neck: Trachea midline Lungs: Normal air entry in all lung nixon, no wheezing appreciated Abdomen: Soft, mildly tender to palpation right greater than left, nondistended , normal bowel sounds. No guarding or rigidity Skin: No rashes, no jaundice Neuro: Awake alert and oriented 3, no focal deficits Results CBC & Chem 7: 12/26/17 08:32 12/26/17 08:32 Labs: Abnormal Lab Results - Last 24 Hours (Table) 12/25/17 12/25/17 12/25/17 Range/Units 06:07 06:07 07:26 WBC 11.4 H (3.8-10.6) k/uL RBC 3.77 L (3.80-5.40) m/uL Neutrophils # 10.3 H (1.3-7.7) k/uL Lymphocytes # 0.9 L (1.0-4.8) k/uL Creatinine 0.38 L (0.52-1.04) mg/dL Glucose 106 H (74-99) mg/dL POC Glucose (mg/dL) 107 H (75-99) mg/dL Total Protein 4.8 L (6.3-8.2) g/dL Albumin 2.6 L (3.5-5.0) g/dL 12/25/17 Range/Units 11:04 WBC (3.8-10.6) k/uL RBC (3.80-5.40) m/uL Neutrophils # (1.3-7.7) k/uL Lymphocytes # (1.0-4.8) k/uL Creatinine (0.52-1.04) mg/dL Glucose (74-99) mg/dL POC Glucose (mg/dL) 101 H (75-99) mg/dL Total Protein (6.3-8.2) g/dL Albumin (3.5-5.0) g/dL CT scan - abdomen: report reviewed (CT scan of the abdomen showing thickening of the terminal ileum and distended small bowel) Assessment and Plan (1) Exacerbation of Crohn's disease of small intestine Narrative/Plan: Patient has a history of Crohn's ileitis with stricturing disease is not required surgery in the past, however the patient has required multiple courses of steroids. Recently she has had multiple episodes of nausea and vomiting with concern for possible obstructive disease. She has been seen by the IBD specialists at [facility] in scheduled follow-up with the surgical team for discussion about possible surgical intervention and removal of the diseased distal ileum. Currently she is reporting improvement in her symptoms, which are being treated with a course of steroid therapy. She is on maintenance therapy with Lialda and infliximab. Status: Acute Code(s): K50.00 - CROHN'S DISEASE OF SMALL INTESTINE WITHOUT COMPLICATIONS SNOMED Code(s): 754334798 (2) Abdominal pain Narrative/Plan: Secondary to above Status: Acute Code(s): R10.9 - UNSPECIFIED ABDOMINAL PAIN SNOMED Code(s): 71740666 Plan: Supportive care Okay for diet, long discussion with the patient about dietary restrictions, she is to be sent home she should maintain a diet consisting primarily of liquids and soft foods. She was also told that at any sign of obstruction with symptoms of nausea, vomiting or increased abdominal pain she should proceed immediately to the hospital. Patient should continue maintenance medications and steroid taper for Crohn's disease Patient to follow up with the surgical service at [facility] for discussion on possible intervention Continue follow-up with gastroenterology outpatient both at [facility] and locally Thank you for allowing us to participate in the care of this patient we will continue to follow
== END 2017-12-26 13:24 | disposition home or self-care (01) | DRG 386 ==
LOC: EC 11:17 → 3NMEDONC 20:51
PROVIDERS: ADMIT Hospitalist; ATTEND Hospitalist
DX: K50.00 Crohn's disease of small intestine without complications (principal); K56.699 Other intestinal obstruction unspecified as to partial versus complete obstruction; Z87.891 Personal history of nicotine dependence; Z79.899 Other long term (current) drug therapy; Z79.52 Long term (current) use of systemic steroids
CPT/HCPCS: 36415; 74021; 74177; 80048; 80053; 81001; 81025; 82150; 83605; 83690; 85025; 96361; 96374; 96375; 99285

== ENCOUNTER → 2022-01-28 | Outpatient (CLI) | payer BC ==
--- NOTE | 2022-01-28 09:32 | MM ---
Reason for Exam: Screening (asymptomatic). Baseline mammogram. Patient History: Menarche at age 15. Patient used Hormonal Contraceptives for 10 years. Last menstrual period: 01/10/2022 Risk Values: Linette 5 year model risk: 0.4%. NCI Lifetime model risk: 6.6%. Prior Study Comparison: Patient's first Mammogram. Tissue Density: The breast tissue is heterogeneously dense. This may lower the sensitivity of mammography. Findings: Analyzed By CAD. There is no suspicious group of microcalcifications or new suspicious mass in either breast. Overall Assessment: Negative, BI-RAD 1 Management: Screening Mammogram of both breasts in 1 year. A clinical breast exam by your physician is recommended on an annual basis and results should be correlated with mammographic findings. [facility] will attempt to contact patient to return for supplemental views and ultrasound if indicated. Electronically signed and approved by: Saurav Mcdaniel DO
== END | disposition home or self-care (01) ==
LOC: RADMAMWWP 06:44
PROVIDERS: ATTEND Obstetrics & Gynecology
DX: Z12.31 Encounter for screening mammogram for malignant neoplasm of breast (principal)
CPT/HCPCS: 77067

== ENCOUNTER → 2022-03-19 | Outpatient (CLI) | payer BC ==
--- NOTE | 2022-03-19 10:28 | USB ---
Reason for Exam: Clinical finding. Patient History: Menarche at age 15. Patient used Hormonal Contraceptives for 10 years. Risk Values: Linette 5 year model risk: 0.4%. NCI Lifetime model risk: 6.6%. Technique: Method: Targeted. Prior Study Comparison: 01/28/2022 Bilateral MG screening mammo w [facility], [facility]. Findings: The axilla of the right breast was scanned. Targeted ultrasound right axilla at the patient directed palpable site for the last 3 weeks. The patient reports that the palpable area has resolved now. No solid or cystic lesion. No axillary lymphadenopathy. A nonenlarged 1.4 x 0.8 x 0.7 cm benign-appearing lymph node is noted. Overall Assessment: Benign, BI-RAD 2 Management: Screening Mammogram of both breasts in 10 months. 1. Patient should continue monthly self breast exams. If the palpable area recurs or any suspicious clinical features develop, the area can be rescanned. 2. A clinical breast exam by your physician is recommended on an annual basis. 3. This exam should not preclude additional follow-up of suspicious palpable abnormalities. Results were given to the patient verbally at the time of exam. Electronically signed and approved by: Juanita Mccord M.D. Radiologist
== END | disposition home or self-care (01) ==
LOC: RADUSWWP 09:41
PROVIDERS: ATTEND Surgery
DX: R22.31 Localized swelling, mass and lump, right upper limb (principal)

== ENCOUNTER → 2022-03-20 | Outpatient (CLI) | payer BC ==
[2022-03-20 11:16] VITALS: BP 122/81; PULSE 78; RESP 16; TEMP 98.8
--- NOTE | 2022-03-20 11:42 | P.GSHP ---
History of Present Illness H&P Date: 03/20/22 Chief Complaint: right axillary mass Yadira is a 41 year old white female seen in consultation for Dr. Andrew with a complaint of a right axillary mass. She had a right axillary ultrasound on 03-19-22 which showed a 1.4 cm benign appearing lymph node. She states it was noted first in October 2021. It has fluctuated in appearance. Most recently it was noted in January but has now gone away. Not receive any antibiotic treatment. She does not know of any specific injury or trauma that would've resulted in the adenopathy. Of significance is the fact she has a history of Crohn's disease. She has presently on Enflextra, mescalamine, and Imuran. Secondary to the medications she wants to assure that this is not a lymphoma. A bilateral mammogram in January 2022 which was benign BIRADS 1. Is not complaining of any lumps masses or nodules of concern in either breast. She is not complaining of any skin changes or nipple discharge of the breast. Caffeine: 1 1/2 cup/day nicotine: none chocolate: occasional BCP: 10 years stopped 10 years ago Family History: paternal grandfather: leukemia maternal grandmother: pancreatic cancer Hormonal History: menarche: 14 G0 periods regular; LMP March 04 Surgical history: 2 oral surgeries to remove wisdom teeth bowel resection two aline placement/ for fistulas Medical History: Crohns disease DVT after bowel resection Social history: Nicotine: Negative Alcohol: Occasional Drugs: Negative - Constitutional Constitutional: Denies chills, Denies fever - EENT Eyes: denies blurred vision, denies pain Ears: deny: decreased hearing, tinnitus Ears, nose, mouth and throat: Denies headache, Denies sore throat - Breasts Breasts: bilateral: as per HPI - Cardiovascular Cardiovascular: Denies chest pain, Denies shortness of breath - Respiratory Respiratory: Denies cough, Denies 7 - Gastrointestinal Gastrointestinal: Reports as per HPI, Reports diarrhea, Denies abdominal pain, Denies nausea, Denies vomiting - Genitourinary (Female) Genitourinary: Denies dysuria, Denies hematuria - Menstruation Menstruation: Reports period normal - Musculoskeletal Musculoskeletal: Denies myalgias - Integumentary Integumentary: Denies pruritus, Denies rash - Neurological Neurological: Denies numbness, Denies weakness - Psychiatric Psychiatric: Denies anxiety, Denies depression - Endocrine Endocrine: Denies fatigue, Denies weight change - Hematologic/Lymphatic Comment: none - Allergic/Immunologic Allergic/Immunologic: Reports as per HPI Past Medical History Additional Past Medical History / Comment(s): crohns History of Any Multi-Drug Resistant Organisms: None Reported Past Surgical History: No Surgical Hx Reported Past Psychological History: No Psychological Hx Reported Additional Psychological History / Comment(s): lives with her and the family home. 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 N o international travel. 2 pet Cats at home Smoking Status: Never smoker Past Alcohol Use History: Rare Past Drug Use History: None Reported Medications and Allergies Home Medications Medication Instructions Recorded Confirmed Type Mesalamine [Lialda] 3.6 gm PO DAILY 12/22/16 03/20/22 History Multivitamins, Thera [Multivitamin 1 tab PO DAILY 12/22/16 03/20/22 History (formulary)] Cholecalciferol (Vitamin D3) 75 mcg PO DAILY 03/20/22 03/20/22 History [Vitamin D3 (3000 Iu)] Infliximab-Dyyb [Inflectra] 0 mg IV DAILY 03/20/22 03/20/22 History Vitamin B Complex 1 each PO DAILY 03/20/22 03/20/22 History azaTHIOprine [Imuran] 150 mg PO DAILY 03/20/22 03/20/22 History Allergies Allergy/AdvReac Type Severity Reaction Status Date / Time No Known Allergies Allergy Verified 03/20/22 11:11 Surgical - Exam Vital Signs Temp Pulse Resp BP Pulse Ox 98.8 F 78 16 122/81 97 03/20/22 11:11 03/20/22 11:11 03/20/22 11:11 03/20/22 11:11 03/20/22 11:11 - General no distress - Eyes normal ocular movement - ENT no hearing loss - Neck trachea midline - Respiratory normal respiratory effort, clear to auscultation - Cardiovascular Rhythm: regular Heart Sounds: normal: S1, S2 - Abdomen Abdomen: soft, non tender, no guarding, no rigid, no rebound - Integumentary normal turgor - Neurologic no disoriented, no combative - Musculoskeletal normal gait, normal posture - Psychiatric oriented to time, oriented to person, oriented to place, speech is normal, memory intact breast Exam: BRA: 38DD Inspection: A lateral grade 3 ptosis Palpation: Right breast: Multiple positional exam fibrocystic changes no dominant masses or nodules of concern Right axilla: No adenopathy of concern on today's exam Left breast: Multiple positional exam fibrocystic changes no dominant masses or nodules of concern Left axilla: No adenopathy of concern The patient has no cervical or groin adenopathy of concern The liver nor spleen are not enlarged Results Mammogram and ultrasound results reviewed from [id number] and [id number] Assessment and Plan Assessment: Impression: Crohn's disease Intermittent axillary adenopathy which has resolved at this time Fibrocystic breast changes Recent bilateral mammogram and right breast ultrasound benign Plan: Close surveillance Bilateral mammogram in 1 year with physician exam at that time
== END ==
LOC: WWCWWP 10:45
PROVIDERS: ATTEND Surgery
DX: N60.11 Diffuse cystic mastopathy of right breast (principal); N60.12 Diffuse cystic mastopathy of left breast; K50.90 Crohn's disease, unspecified, without complications; R59.0 Localized enlarged lymph nodes

== ENCOUNTER → 2022-07-30 | Outpatient (CLI) | payer BC ==
--- NOTE | 2022-07-30 15:08 | USB ---
Reason for Exam: Clinical finding. Patient History: Menarche at age 15. Patient used Hormonal Contraceptives for 10 years. Risk Values: Linette 5 year model risk: 0.4%. NCI Lifetime model risk: 6.6%. Prior Study Comparison: 01/28/2022 Bilateral MG screening mammo w CAD, [facility]. 03/19/2022 Right US breast axilla RT, [facility]. Findings: The axilla of the right breast was scanned. Targeted ultrasound right axilla the patient's palpable site. The previous lymph node seen on 03/19/2022 is no longer identified. No axillary lymphadenopathy or other solid or cystic lesion is seen. Overall Assessment: Negative, BI-RAD 1 Management: Screening Mammogram of both breasts in 6 months. Further clinical management of any suspicious palpable abnormalities. Patient due back for annual exam in 6 months. Continue monthly self breast exams. Results were given to the patient verbally at the time of exam. Electronically signed and approved by: Juanita Mccord M.D. Radiologist
== END | disposition home or self-care (01) ==
LOC: RADUSWWP 14:19
PROVIDERS: ATTEND Surgery
DX: N63.10 Unspecified lump in the right breast, unspecified quadrant (principal)

== ENCOUNTER → 2022-09-04 | Outpatient (CLI) | payer BC ==
--- NOTE | 2022-09-04 09:54 | P.PN ---
Subjective Progress Note Date: 09/04/22 Yadira is a 41 year old white female seen in consultation for Dr. Andrew with a complaint of a right axillary mass. She had a right axillary ultrasound on 03-19-22 which showed a 1.4 cm benign appearing lymph node. She states it was noted first in October 2021. It has fluctuated in appearance. Most recently it was noted in January but has now gone away. Not receive any antibiotic treatment. She does not know of any specific injury or trauma that would've resulted in the adenopathy. Of significance is the fact she has a history of Crohn's disease. She has presently on Enflextra, mescalamine, and Imuran. Secondary to the medications she wants to assure that this is not a lymphoma. A bilateral mammogram in January 2022 which was benign BIRADS 1. Is not complaining of any lumps masses or nodules of concern in either breast. She is not complaining of any skin changes or nipple discharge of the breast. 09-04-22 The patient had a right axillary ultrasound on 07-30-22 this was BIRAD 1 with no adenopathy of concern noted the patient has most recently noted some fluctuating adenopathy in the right axilla. She states that several days ago she noted an enlarged node which has now resolved. Caffeine: 1 1/2 cup/day nicotine: none chocolate: occasional BCP: 10 years stopped 10 years ago Family History: paternal grandfather: leukemia maternal grandmother: pancreatic cancer Hormonal History: menarche: 14 G0 periods regular; LMP March 04 Surgical history: 2 oral surgeries to remove wisdom teeth bowel resection two aline placement/ for fistulas Medical History: Crohns disease DVT after bowel resection Social history: Nicotine: Negative Alcohol: Occasional Drugs: Negative - Constitutional Constitutional: Denies chills, Denies fever - EENT Eyes: denies blurred vision, denies pain Ears: deny: decreased hearing, tinnitus Ears, nose, mouth and throat: Denies headache, Denies sore throat - Breasts Breasts: bilateral: as per HPI - Cardiovascular Cardiovascular: Denies chest pain, Denies shortness of breath - Respiratory Respiratory: Denies cough, Denies 7 - Gastrointestinal Gastrointestinal: Reports as per HPI, Reports diarrhea, Denies abdominal pain, Denies nausea, Denies vomiting - Genitourinary (Female) Genitourinary: Denies dysuria, Denies hematuria - Menstruation Menstruation: Reports period normal - Musculoskeletal Musculoskeletal: Denies myalgias - Integumentary Integumentary: Denies pruritus, Denies rash - Neurological Neurological: Denies numbness, Denies weakness - Psychiatric Psychiatric: Denies anxiety, Denies depression - Endocrine Endocrine: Denies fatigue, Denies weight change - Hematologic/Lymphatic Comment: none - Allergic/Immunologic Allergic/Immunologic: Reports as per HPI Past Medical History Additional Past Medical History / Comment(s): crohns History of Any Multi-Drug Resistant Organisms: None Reported Past Surgical History: No Surgical Hx Reported Past Psychological History: No Psychological Hx Reported Additional Psychological History / Comment(s): 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 2 pet Cats at home Smoking Status: Never smoker Past Alcohol Use History: Rare Past Drug Use History: None Reported Medications and Allergies Home Medications Medication Instructions Recorded Confirmed Type Mesalamine [Lialda] 3.6 gm PO DAILY 12/22/16 03/20/22 History Multivitamins, Thera [Multivitamin 1 tab PO DAILY 12/22/16 03/20/22 History (formulary)] Cholecalciferol (Vitamin D3) 75 mcg PO DAILY 03/20/22 03/20/22 History [Vitamin D3 (3000 Iu)] Infliximab-Dyyb [Inflectra] 0 mg IV DAILY 03/20/22 03/20/22 History Vitamin B Complex 1 each PO DAILY 03/20/22 03/20/22 History azaTHIOprine [Imuran] 150 mg PO DAILY 03/20/22 03/20/22 History Allergies Allergy/AdvReac Type Severity Reaction Status Date / Time No Known Allergies Allergy Verified 03/20/22 11:11 Objective - Vital Signs Vital signs: Intake & Output 09/03/22 09/04/22 09/04/22 18:59 06:59 18:59 Weight 77.111 kg - Constitutional General appearance: Present: cooperative - EENT Eyes: Present: EOMI ENT: Present: hearing grossly normal - Neck Neck: Present: normal ROM - Respiratory Respiratory: bilateral: CTA - Cardiovascular Rhythm: regular Heart sounds: normal: S1, S2 - Integumentary Integumentary: Present: normal turgor - Musculoskeletal Musculoskeletal: Present: gait normal - Psychiatric Psychiatric: Present: A&O x's 3, appropriate affect, intact judgment & insight - Additional findings Additional findings: breast Exam: BRA: 38DD Inspection: A lateral grade 3 ptosis Palpation: Right breast: Multiple positional exam fibrocystic changes no dominant masses or nodules of concern Right axilla: No adenopathy of concern on today's exam Left breast: Multiple positional exam fibrocystic changes no dominant masses or nodules of concern Left axilla: No adenopathy of concern The patient has no cervical or groin adenopathy of concern The liver nor spleen are not enlarged Assessment and Plan Assessment: Impression: Crohn's disease Intermittent axillary adenopathy which has resolved at this time Fibrocystic breast changes Recent right breast ultrasound [id number] benign BIRADS 1, last bilateral mammogram was on January 27 which was benign BIRADS 1. Plan: Close surveillance Bilateral mammogram in 1 year with physician exam at that time Additional CC's: Neo Andrew
== END ==
LOC: WWCWWP 08:49
PROVIDERS: ATTEND Surgery
DX: N60.11 Diffuse cystic mastopathy of right breast (principal); K50.90 Crohn's disease, unspecified, without complications; Z86.718 Personal history of other venous thrombosis and embolism; Z79.624 Long term (current) use of inhibitors of nucleotide synthesis

== ENCOUNTER → 2023-02-01 | Outpatient (CLI) | payer BC ==
--- NOTE | 2023-02-02 12:19 | MM ---
Reason for Exam: Screening (asymptomatic). Last screening mammogram was performed 12 month(s) ago. Patient History: Menarche at age 15. Patient has no children. Premenopausal. Patient used Hormonal Contraceptives for 10 years. Last menstrual period: 01/23/2023 Risk Values: Linette 5 year model risk: 0.7%. NCI Lifetime model risk: 10.0%. Prior Study Comparison: 01/28/2022 Bilateral MG screening mammo w CAD, [facility]. Tissue Density: The breast tissue is heterogeneously dense. This may lower the sensitivity of mammography. Findings: Analyzed By CAD. There is no suspicious group of microcalcifications or new suspicious mass in either breast. Overall Assessment: Benign, BI-RAD 2 Management: Screening Mammogram of both breasts in 1 year. . Patient should continue monthly self-breast exams. A clinical breast exam by your physician is recommended on an annual basis. This exam should not preclude additional follow-up of suspicious palpable abnormalities. Note on Linette scores and lifetime risk: 1. A Linette score greater than 3% is considered moderate risk. If this is the case, consider specialist referral to assess eligibility for a risk reducing agent. 2. If overall lifetime risk for the development of breast cancer is 20% or higher, the patient may qualify for future screening with alternating mammogram and breast MRI. Electronically signed and approved by: Darnell Dumont M.D. Radiologis
== END | disposition home or self-care (01) ==
LOC: RADMAMWWP 08:02
PROVIDERS: ATTEND Surgery
DX: Z12.31 Encounter for screening mammogram for malignant neoplasm of breast (principal)
CPT/HCPCS: 77067

== ENCOUNTER → 2023-02-05 | Outpatient (CLI) | payer BC ==
--- NOTE | 2023-02-05 12:02 | P.PN ---
Subjective Progress Note Date: 02/05/23 Principal diagnosis: fibrocystic breast changes Subjective Progress Note Date: 09/04/22 Yadira is a 41 year old white female seen in consultation for Dr. Andrew with a complaint of a right axillary mass. She had a right axillary ultrasound on 03-19-22 which showed a 1.4 cm benign appearing lymph node. She states it was noted first in October 2021. It has fluctuated in appearance. Most recently it was noted in January but has now gone away. Not receive any antibiotic treatment. She does not know of any specific injury or trauma that would've resulted in the adenopathy. Of significance is the fact she has a history of Crohn's disease. She has presently on Enflextra, mescalamine, and Imuran. Secondary to the medications she wants to assure that this is not a lymphoma. A bilateral mammogram in January 2022 which was benign BIRADS 1. Is not complaining of any lumps masses or nodules of concern in either breast. She is not complaining of any skin changes or nipple discharge of the breast. 09-04-22 The patient had a right axillary ultrasound on 07-30-22 this was BIRAD 1 with no adenopathy of concern noted the patient has most recently noted some fluctuating adenopathy in the right axilla. She states that several days ago she noted an enlarged node which has now resolved. 02-05-23 bilateral mammogram on 02-01-23 personally reviewed She is not complaining of any axillary swelling at this time, although she has had some written axillary swelling; She is not in plane of any lumps masses or nodules of concern in either breast Caffeine: 1 1/2 cup/day nicotine: none chocolate: occasional BCP: 10 years stopped 10 years ago Family History: paternal grandfather: leukemia maternal grandmother: pancreatic cancer Hormonal History: menarche: 14 G0 periods regular; LMP March 04 Surgical history: 2 oral surgeries to remove wisdom teeth bowel resection two aline placement/ for fistulas Medical History: Crohns disease DVT after bowel resection Social history: Nicotine: Negative Alcohol: Occasional Drugs: Negative - Constitutional Constitutional: Denies chills, Denies fever - EENT Eyes: denies blurred vision, denies pain Ears: deny: decreased hearing, tinnitus Ears, nose, mouth and throat: Denies headache, Denies sore throat - Breasts Breasts: bilateral: as per HPI - Cardiovascular Cardiovascular: Denies chest pain, Denies shortness of breath - Respiratory Respiratory: Denies cough - Gastrointestinal Gastrointestinal: Reports as per HPI, Reports diarrhea, Denies abdominal pain, Denies nausea, Denies vomiting - Genitourinary (Female) Genitourinary: Denies dysuria, Denies hematuria - Menstruation Menstruation: Reports period normal - Musculoskeletal Musculoskeletal: Denies myalgias - Integumentary Integumentary: Denies pruritus, Denies rash - Neurological Neurological: Denies numbness, Denies weakness - Psychiatric Psychiatric: Denies anxiety, Denies depression - Endocrine Endocrine: Denies fatigue, Denies weight change - Hematologic/Lymphatic Comment: none - Allergic/Immunologic Allergic/Immunologic: Reports as per HPI Past Medical History Additional Past Medical History / Comment(s): crohns History of Any Multi-Drug Resistant Organisms: None Reported Past Surgical History: No Surgical Hx Reported Past Psychological History: No Psychological Hx Reported Additional Psychological History / Comment(s): 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 2 pet Cats at home Smoking Status: Never smoker Past Alcohol Use History: Rare Past Drug Use History: None Reported Medications and Allergies Home Medications Medication Instructions Recorded Confirmed Type Mesalamine [Lialda] 3.6 gm PO DAILY 12/22/16 03/20/22 History Multivitamins, Thera [Multivitamin 1 tab PO DAILY 12/22/16 03/20/22 History (formulary)] Cholecalciferol (Vitamin D3) 75 mcg PO DAILY 03/20/22 03/20/22 History [Vitamin D3 (3000 Iu)] Infliximab-Dyyb [Inflectra] 0 mg IV DAILY 03/20/22 03/20/22 History Vitamin B Complex 1 each PO DAILY 03/20/22 03/20/22 History azaTHIOprine [Imuran] 150 mg PO DAILY 03/20/22 03/20/22 History Allergies Allergy/AdvReac Type Severity Reaction Status Date / Time No Known Allergies Allergy Verified 03/20/22 11:11 Objective - Constitutional General appearance: Present: cooperative - EENT Eyes: Present: EOMI ENT: Present: hearing grossly normal - Neck Neck: Present: normal ROM - Respiratory Respiratory: bilateral: CTA - Cardiovascular Heart sounds: normal: S1, S2 - Integumentary Integumentary: Present: normal turgor - Musculoskeletal Musculoskeletal: Present: gait normal - Psychiatric Psychiatric: Present: A&O x's 3, appropriate affect, intact judgment & insight - Additional findings Additional findings: breast Exam: BRA: 38DD Inspection: Bilateral grade 3 ptosis Palpation: Right breast: Multiple positional exam fibrocystic changes no dominant masses or nodules of concern Right axilla: No adenopathy of concern on today's exam Left breast: Multiple positional exam fibrocystic changes no dominant masses or nodules of concern Left axilla: No adenopathy of concern The patient has no cervical or groin adenopathy of concern The liver nor spleen are not enlarged Assessment and Plan Assessment: Impression: Crohn's disease Intermittent axillary adenopathy which has resolved at this time Fibrocystic breast changes bilateral mammogram 02-01-23 BIRAD 2 Plan: Close surveillance Bilateral mammogram in 1 year with physician exam at that time Additional CC's: Neo Andrew
[2023-02-05 12:39] VITALS: BP 154/88; PULSE 80; RESP 17; TEMP 97.8
== END ==
LOC: WWCWWP 10:42
PROVIDERS: ATTEND Surgery
DX: Z12.31 Encounter for screening mammogram for malignant neoplasm of breast (principal)

== ENCOUNTER → 2024-02-04 | Outpatient (CLI) | payer BC ==
--- NOTE | 2024-02-07 09:13 | MM ---
Reason for Exam: Screening (asymptomatic). Last screening mammogram was performed 12 month(s) ago. Patient History: Menarche at age 15. Patient has no children. Premenopausal. Patient used Hormonal Contraceptives for 10 years. Risk Values: Linette 5 year model risk: 0.7%. NCI Lifetime model risk: 9.9%. Prior Study Comparison: 01/28/2022 Bilateral MG screening mammo w CAD, [facility]. 02/01/2023 Bilateral MG screening mammo w CAD, [facility]. Tissue Density: The breasts are heterogeneously dense, which may obscure small masses. Findings: Analyzed By CAD. Right breast: There is no suspicious group of microcalcifications or new suspicious mass. Left breast: There is no suspicious group of microcalcifications or new suspicious mass. Overall Assessment: Negative, BI-RAD 1 Management: Screening Mammogram of both breasts in [address] [facility] will attempt to contact patient to return for supplemental views and ultrasound if indicated. Patient should continue monthly self-breast exams. A clinical breast exam by your physician is recommended on an annual basis. This exam should not preclude additional follow-up of suspicious palpable abnormalities. Note on Linette scores and lifetime risk: 1. A Linette score greater than 3% is considered moderate risk. If this is the case, consider specialist referral to assess eligibility for a risk reducing agent. 2. If overall lifetime risk for the development of breast cancer is 20% or higher, the patient may qualify for future screening with alternating mammogram and breast MRI. [facility], , 02/07/2024 9:09 AM. Electronically signed and approved by: Saurav Mcdaniel DO
== END | disposition home or self-care (01) ==
LOC: RADMAMWWP 09:42
PROVIDERS: ATTEND Surgery
DX: Z12.31 Encounter for screening mammogram for malignant neoplasm of breast (principal); R92.333 Mammographic heterogeneous density, bilateral breasts
CPT/HCPCS: 77067

== ENCOUNTER → 2024-02-11 | Outpatient (CLI) | payer BC ==
[2024-02-11 10:47] VITALS: BP 157/89; PULSE 70; RESP 16; TEMP 98.7
--- NOTE | 2024-02-11 11:07 | P.PN ---
Subjective Progress Note Date: 02/11/24 Principal diagnosis: adenopathy/immuno suppression for Chroans Principal diagnosis: 02-11-24 Yadira is a 43 year old initially seen on 09-04-22 for right axillary swelling. She had a right axillary 1.4 cm benign appearing node. She states it was noted first in October 2021. It had fluctuated in appearance. Not receive any antibiotic treatment. She does not know of any specific injury or trauma that would've resulted in the adenopathy. Of significance is the fact she has a history of Crohn's disease. She was on Enflextra, mescalamine, and Imuran. Secondary to the medications she wanted to assure that this was not a lymphoma. Bilateral mammogram on 02-04-24 BIRAD 1 personally reviewed. She was told at her OB appointment she had some sunmandibular adenopathy. She had had the biologic drug Inflixemab (Enflextra) every 2 weeks; she had a reinduction (3 doses spaced 2 weeks apart instead of every 4 weeks). this is for her Chroans disease. She is still taking the mescalamine BID and the Imuran 1 time a day. At this time she has no cervical or axillary adenopathy for which she is concerned and no lesions in either breast for which she is concerned. She is stable with the Chroans disease, she had a fistula that is not healing and is following up at [facility] next week. Caffeine: 1 1/2 cup/day nicotine: none chocolate: occasional BCP: 10 years stopped 10 years ago Family History: paternal grandfather: leukemia maternal grandmother: pancreatic cancer Hormonal History: menarche: 14 G0 periods regular; LMP March 04 Surgical history: 2 oral surgeries to remove wisdom teeth bowel resection two aline placement/ for fistulas Medical History: Crohns disease DVT after bowel resection Social history: Nicotine: Negative Alcohol: Occasional Drugs: Negative - Constitutional Constitutional: Denies chills, Denies fever - EENT Eyes: denies blurred vision, denies pain Ears: deny: decreased hearing, tinnitus Ears, nose, mouth and throat: Denies headache, Denies sore throat - Breasts Breasts: bilateral: as per HPI - Cardiovascular Cardiovascular: Denies chest pain, Denies shortness of breath - Respiratory Respiratory: Denies cough - Gastrointestinal Gastrointestinal: Reports as per HPI, Reports diarrhea, Denies abdominal pain, Denies nausea, Denies vomiting - Genitourinary (Female) Genitourinary: Denies dysuria, Denies hematuria - Menstruation Menstruation: Reports period normal - Musculoskeletal Musculoskeletal: Denies myalgias - Integumentary Integumentary: Denies pruritus, Denies rash - Neurological Neurological: Denies numbness, Denies weakness - Psychiatric Psychiatric: Denies anxiety, Denies depression - Endocrine Endocrine: Denies fatigue, Denies weight change - Hematologic/Lymphatic Comment: none - Allergic/Immunologic Allergic/Immunologic: Reports as per HPI Past Medical History Additional Past Medical History / Comment(s): crohns History of Any Multi-Drug Resistant Organisms: None Reported Past Surgical History: No Surgical Hx Reported Past Psychological History: No Psychological Hx Reported Additional Psychological History / Comment(s): 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 2 pet Cats at home Smoking Status: Never smoker Past Alcohol Use History: Rare Past Drug Use History: None Reported Medications and Allergies Home Medications Medication Instructions Recorded Confirmed Type Mesalamine [Lialda] 3.6 gm PO DAILY 12/22/16 03/20/22 History Multivitamins, Thera [Multivitamin 1 tab PO DAILY 12/22/16 03/20/22 History (formulary)] Cholecalciferol (Vitamin D3) 75 mcg PO DAILY 03/20/22 03/20/22 History [Vitamin D3 (3000 Iu)] Infliximab-Dyyb [Inflectra] 0 mg IV DAILY 03/20/22 03/20/22 History Vitamin B Complex 1 each PO DAILY 03/20/22 03/20/22 History azaTHIOprine [Imuran] 150 mg PO DAILY 03/20/22 03/20/22 History Allergies Allergy/AdvReac Type Severity Reaction Status Date / Time No Known Allergies Allergy Verified 03/20/22 11:11 Objective - Vital Signs Vital signs: Vital Signs Temp 98.7 F 02/11/24 10:45 Pulse 70 02/11/24 10:45 Resp 16 02/11/24 10:45 BP 157/89 02/11/24 10:45 Pulse Ox 99 02/11/24 10:45 FiO2 Intake & Output 02/10/24 02/11/24 02/11/24 18:59 06:59 18:59 Weight 77.111 kg - Constitutional General appearance: Present: cooperative - EENT Eyes: Present: EOMI ENT: Present: hearing grossly normal - Neck Neck: Present: normal ROM - Respiratory Respiratory: bilateral: CTA - Cardiovascular Rhythm: regular Heart sounds: normal: S1, S2 - Integumentary Integumentary: Present: normal turgor - Musculoskeletal Musculoskeletal: Present: gait normal - Psychiatric Psychiatric: Present: A&O x's 3, appropriate affect, intact judgment & insight - Additional findings Additional findings: reast Exam: BRA: 38DD Inspection: Bilateral grade 3 ptosis Palpation: Right breast: Multi-positional exam fibrocystic changes no dominant masses or nodules of concern Right axilla: No adenopathy of concern on today's exam Left breast: Multiple positional exam fibrocystic changes no dominant masses or nodules of concern Left axilla: No adenopathy of concern The patient has no cervical or groin adenopathy of concern The liver nor spleen are not enlarged Assessment and Plan Assessment: Impression: Crohn's disease Intermittent axillary adenopathy which has resolved at this time Fibrocystic breast changes bilateral mammogram 02-04-24 BIRAD 1 Plan: Close surveillance Bilateral mammogram in 1 year. January 2025 with physician exam at that time follow up sooner any concerns Additional CC's: Neo Andrew
== END ==
LOC: WWCWWP 10:33
PROVIDERS: ATTEND Surgery
DX: Z12.31 Encounter for screening mammogram for malignant neoplasm of breast (principal); K50.90 Crohn's disease, unspecified, without complications; N60.11 Diffuse cystic mastopathy of right breast; N60.12 Diffuse cystic mastopathy of left breast; R92.8 Other abnormal and inconclusive findings on diagnostic imaging of breast

== ENCOUNTER 2024-07-05 13:58 | Emergency (ER) | payer BC ==
[2024-07-05] MEDS: SODIUM CHLORIDE 0.9% 1,000 ML IV ONE (14:44)
[2024-07-05] MEDS: PANTOPRAZOLE 40 MG/10 ML VIAL IVP STA (14:45)
[2024-07-05] MEDS: ONDANSETRON 4 MG/2 ML VIAL IVP STA (14:45)
[2024-07-05 15:02] LABS: Basophils # (A) 0.02 10*3/uL (0.00-0.10); Basophils % (A) 0.2 %; Eosinophils # (A) 0.03 10*3/uL (0.04-0.35); Eosinophils % (A) 0.3 %; HCT 39.4 % (37.2-46.3); HGB 13.9 g/dL (12.0-15.0); Lymphocytes # (A) 1.86 10*3/uL (0.90-5.00); Lymphocytes % (A) 18.9 %; MCH 32.8 pg (27.0-32.0); MCHC 35.3 g/dL (32.0-37.0); MCV 92.9 fL (80.0-97.0); Mean Platelet Volume 10.6 fL (9.5-12.2); Monocytes # (A) 0.46 10*3/uL (0.20-1.00); Monocytes % (A) 4.7 %; Neutrophils # (A) 7.46 10*3/uL (1.80-7.70); Neutrophils % (A) 75.8 %; Platelet Count 193 10*3/uL (140-440); RBC 4.24 10*6/uL (4.10-5.20); RDW 12.4 % (11.5-14.5); WBC 9.84 10*3/uL (4.50-10.00)
[2024-07-05 15:20] LABS: INR 0.9 (<1.2); Partial Thromboplastin Time 22.6 sec (22.0-30.0); Prothrombin Time 10.3 sec (10.0-12.5)
[2024-07-05 15:22] LABS: ALT 18 U/L (4-34); AST 26 U/L (14-36); African American GFR (CKD) >90 (>60 ml/min/1.73 sqM); Albumin 4.3 g/dL (3.5-5.0); Alkaline Phosphatase 48 U/L (38-126); Amylase 49 U/L (30-110); Anion Gap 9 mmol/L; Blood Urea Nitrogen 9 mg/dL (7-17); Calcium 10.3 mg/dL (8.4-10.2); Carbon Dioxide 21 mmol/L (22-30); Chloride 106 mmol/L (98-107); Glucose 86 mg/dL (74-99); Lipase 84 U/L (23-300); Non-African American GFR(CKD) >90 (>60 ml/min/1.73 sqM); Potassium 3.9 mmol/L (3.5-5.1); Sodium 136 mmol/L (137-145); Total Bilirubin 0.9 mg/dL (0.2-1.3)
--- NOTE | 2024-07-05 15:34 | US ---
EXAMINATION TYPE: US gallbladder DATE OF EXAM: 07/05/2024 COMPARISON: CT abd 2017, US GB 2016 CLINICAL INDICATION: Female, 44 years old with history of ruq abd pain; RUQ pain x 3 days, bloating x 3 weeks TECHNIQUE: Grayscale and color Doppler imaging of the right upper quadrant was performed. FINDINGS: EXAM MEASUREMENTS: Liver Length: 15.6 cm Gallbladder Wall: 0.18 cm CBD: 0.76 cm Right Kidney: 9.8 x 4.5 x 5.1 cm KNOCKDOWN WORKER NOTES: Pancreas: Tail obscured by overlying bowel gas Liver: wnl Gallbladder: Stone seen again as seen on prior from 2017. Evidence for sonographic Ribeiro's sign: No CBD: appears dilated Right Kidney: appears wnl INCIDENTAL FINDING: mass noted that appears to originate from the pelvis and extend into the RUQ m easuring 15cm. An additional mass like area is noted midline pelvis measuring 15.6cm. Unable to deter mine origin within pelvis. IMPRESSION: 1. CT recommended for heterogenous mass which appears to arise from the pelvis. 2. Cholelithiasis with common bile duct dilatation. No wall thickening is appreciated. No pericholecy stic fluid. [facility], , 07/05/2024 3:31 PM
[2024-07-05 15:43] LABS: Appearance,Urine Clear (Clear); Bilirubin,Urine Negative (Negative); Blood,Urine Negative (Negative); Color,Urine Colorless; Glucose,Urine (UA) Negative (Negative); Ketones,Urine Negative (Negative); Leukocyte Esterase,Urine Negative (Negative); Nitrite,Urine Negative (Negative); PH, Urine 5.5 (5.0-8.0); Protein,Urine Negative (Negative); Specific Gravity,Urine 1.003 (1.001-1.035); Urobilinogen,Urine <2.0 mg/dL (<2.0)
--- NOTE | 2024-07-05 16:56 | CT ---
EXAMINATION TYPE: CT abdomen pelvis w con DATE OF EXAM: 07/05/2024 4:35 PM COMPARISON: CT abdomen pelvis most recent from 12/24/2017 CLINICAL INDICATION: Female, 44 years old with history of abd pain. ruq. mass seen on CT. history of fibroid; RUQ abdominal pain. Mass seen on prior US. Hx of fibroid. TECHNIQUE: Axial CT abdomen pelvis w con;Sagittal and coronal reformats were created on a separate w orkstation. Contrast used:100 ml mL of Isovue 300 with IV Contrast, (none if empty) Oral contrast used: without Oral Contrast (none if empty) CT DLP: 1009 mGycm, Automated exposure control for dose reduction was used. FINDINGS: LOWER CHEST: Unremarkable ABDOMEN LIVER: Unremarkable GALLBLADDER AND BILE DUCTS: Gallstones layering the gallbladder.r PANCREAS: Unremarkable. SPLEEN: Unremarkable. ADRENAL GLANDS: Unremarkable. KIDNEYS AND URETERS: No evidence of hydronephrosis or obstructing renal calculus. The ureters are unr emarkable. PELVIS BLADDER: No evidence for wall thickening or mass given limitations of exam. REPRODUCTIVE: The uterus is enlarged with large pedunculated fibroid measuring up to 15 cm present in the right lower quadrant. There is fluid in the right lower quadrant. The ovaries displace the right lower quadrant due to large degenerative fibroid. In totality uterus and fibroid measures up to 24 c m x 16 cm. The right ovary is located in the anterior low pelvis and would be best visualized with tr ansabdominal ultrasound. ABDOMEN & PELVIS STOMACH AND BOWEL: No evidence of bowel obstruction. Postsurgical changes of the large bowel includin g the cecum with possible appendectomy. PERITONEUM/RETROPERITONEUM: No evidence of pneumoperitoneum or free fluid. VASCULATURE: No evidence of aortic aneurysm. MUSCULOSKELETAL: No acute osseous abnormalities LYMPH NODES: No gross evidence for lymphadenopathy. SOFT TISSUE/ABDOMINAL WALL: Ventral wall fat-containing hernia in the upper abdomen IMPRESSION: 1. Markedly enlarged uterus with the largest fibroid in the right lower quadrant measuring up to 16 cm previously 4 mm on 12/24/2017. This has a heterogenous appearance with small amount of fluid in th e right lower quadrant is thought to be around the right ovary which is located in the anterior right lower abdomen. Consider surgical consultation for removal of large fibroid uterus. 2. The cecum has postsurgical change suggesting appendectomy. 3. No evidence for obstructive uropathy. 4. Cholelithiasis. [facility], , 07/05/2024 4:53 PM
--- NOTE | 2024-07-05 17:20 | ED ---
General Adult HPI - General Chief complaint: Abdominal Pain Stated complaint: R Abd Pain Time Seen by Provider: 07/05/24 14:20 Source: patient, RN notes reviewed, old records reviewed Mode of arrival: ambulatory Limitations: no limitations - History of Present Illness Initial comments: Patient is a 44-year-old female presents emergency department complaining of abdominal pain. States it is in primarily the right upper quadrant. Was sent by her PCP over concern for possible gallbladder pathology. Endorses occasional nausea. Denies any change in bowel habits. Has a history of Crohn's disease. Denies any chest pain or shortness of breath. Denies any fevers, chills, cough. Presents for further evaluation at this time. Does have a history of known uterine fibroids. Presents for further evaluation at this time. Denies any vaginal discharge or bleeding. - Related Data Home Medications Medication Instructions Recorded Confirmed Multivitamins, Thera [Multivitamin 1 tab PO DAILY 12/22/16 07/05/24 (formulary)] azaTHIOprine [Imuran] 200 mg PO DAILY 03/20/22 07/05/24 Ascorbic Acid [Vitamin C] 500 mg PO DAILY 07/05/24 07/05/24 Cholecalciferol [Vitamin D3 (25 25 mcg PO DAILY 07/05/24 07/05/24 Mcg = 1000 Iu)] Creatine 5 gm PO DAILY 07/05/24 07/05/24 Cyanocobalamin (Vitamin B-12) 1,000 mcg PO DAILY 07/05/24 07/05/24 [Vitamin B-12] Infliximab(Unknown Dose) 800 ml IV Q28D 07/05/24 07/05/24 Allergies Allergy/AdvReac Type Severity Reaction Status Date / Time No Known Allergies Allergy Verified 07/05/24 15:22 Review of Systems ROS Statement: Those systems with pertinent positive or pertinent negative responses have been documented in the HPI. Review of Systems: CONST: Denies fever EYES: Denies blurry vision ENT: Denies nasal congestion C/V: Denies Chest pain RESP: Denies shortness of breath GI: Endorses abdominal pain : Denies dysuria SKIN: Denies rash. MSK: Denies joint pain. NEURO: Denies headache ROS Other: All systems not noted in ROS Statement are negative. Past Medical History Additional Past Medical History / Comment(s): crohns History of Any Multi-Drug Resistant Organisms: None Reported Past Surgical History: No Surgical Hx Reported Past Psychological History: No Psychological Hx Reported Smoking Status: Never smoker Past Alcohol Use History: Rare Past Drug Use History: None Reported General Exam - General Exam Comments Initial Comments: General: Appears in no acute distress. HEAD: Normal with no signs of head trauma. EYES: EOMI ENT: Hearing grossly intact, normal oropharynx. RESPIRATORY: Clear breath sounds bilaterally. No wheezes, rales, or rhonchi. C/V: Regular rate and rhythm. S1 and S2 auscultated, no edema, peripheral pulses 2+ and intact throughout ABD: Abdomen soft, nondistended. Mild tenderness palpation the right upper quadrant. No guarding or rebound tenderness. No peritoneal signs. EXT: No obvious deformity. SKIN: No rashes or lesions observed on exposed skin. NEURO: Alert and oriented x 4. Limitations: no limitations Course Vital Signs 07/05/24 07/05/24 13:59 17:24 Temperature 97.7 F 98 F Pulse Rate 91 68 Respiratory 16 18 Rate Blood Pressure 163/101 136/89 O2 Sat by Pulse 100 100 Oximetry Medical Decision Making - Medical Decision Making Was pt. sent in by a medical professional or institution (, PA, SHIRT CLEANER, urgent care, hospital, or [place] health care facility...) When possible be specific @ -No Did you speak to anyone other than the patient for history (EMS, parent, family, police, friend...)? What history was obtained from this source @ -No Did you review nursing and triage notes (agree or disagree)? Why? @ -I reviewed and agree with nursing and triage notes Were old charts reviewed (outside hosp., previous admission, EMS record, old EKG, old radiological studies, urgent care reports/EKG's, [place] health care facility records)? Report findings @ -No old charts were reviewed Differential Diagnosis (chest pain, altered mental status, abdominal pain women, abdominal pain men, vaginal bleeding, weakness, fever, dyspnea, syncope, headache, dizziness, GI bleed, back pain, seizure, CVA, palpatations, mental health, musculoskeletal)? @ -Differential Abdominal Pain Women: Appendicitis, Cholecystitis, diverticulosis, ischemic bowel, pancreatitis, hepatitis, UTI, gastroenteritis, AAA, incarcerated hernia, bowel obstruction, constipation, inflammatory bowel, hepatitis, peptic ulcer disease, splenic infarction, perforated viscus, vulvitis, ovarian torsion, PID, kidney stone, placenta abruption, this is not meant to be an all-inclusive list EKG interpreted by me (3pts min.). @ -As above X-rays interpreted by me (1pt min.). @ -None done CT interpreted by me (1pt min.). @ -CT abdomen pelvis shows a large 16 cm uterine fibroid with extension into the right upper quadrant in addition to a gallstone. No evidence of acute infectious pathology at this time. U/S interpreted by me (1pt. min.). @ -Gallbladder ultrasound shows cholelithiasis without cholecystitis. Patient has a large mass present as well of unknown etiology. What testing was considered but not performed or refused? (CT, X-rays, U/S, labs)? Why? @ -None What meds were considered but not given or refused? Why? @ -None Did you discuss the management of the patient with other professionals (professionals i.e. , PA, SHIRT CLEANER, lab, RT, psych nurse, director social service, hurricane tracker, teacher, v/stol landing signal officer, rifle case repairer)? Give summary @ -No Was smoking cessation discussed for >3mins.? @ -No Was critical care preformed (if so, how long)? @ -No Were there social determinants of health that impacted care today? How? (Homelessness, low income, unemployed, alcoholism, drug addiction, transportation, low edu. Level, literacy, decrease access to med. care, care home, rehab)? @ -No Was there de-escalation of care discussed even if they declined (Discuss DNR or withdrawal of care, Hospice)? DNR status @ -No What co-morbidities impacted this encounter? (DM, HTN, Smoking, COPD, CAD, Cancer, CVA, ARF, Chemo, Hep., AIDS, mental health diagnosis, sleep apnea, morbid obesity)? @ -None Was patient admitted / discharged? Hospital course, mention meds given and route, prescriptions, significant lab abnormalities, going to OR and other pertinent info. @ -Patient presents emergency department with abdominal pain. Concern for possible gallbladder. Has been ongoing for weeks to months. We will obtain abdominal labs as well as gallbladder ultrasound initially. Patient was in agreement this plan. Patient symptomatic treated with IV fluids, Zofran, Protonix. Declines analgesia meds. Vitals are within acceptable limits. Laboratory studies are all within acceptable limits. This includes hepatobiliary labs. Gallbladder ultrasound shows cholelithiasis without evidence of cholecystitis. Patient does have a large mass present of unknown etiology. Could be related to fibroid. Discussed results with patient. We will obtain CT imaging. She was in agreement this plan. CT imaging does show the large uterine fibroid on the right. I discussed the results of her imaging. Could be related to her gallbladder. Could be related to the fibroid. Labs either way are unremarkable. Recommended follow-up with her PCP as well as GI specialist which she states she has both already. Strict return precautions discussed. I instructed the patient to follow up with their PCP in the next 1-3 days. I explained that the patient should return to the emergency department if they experience any worsening symptoms. Strict return precautions were discussed with the patient. The patient expressed understanding of these instructions. I answered all questions that the patient had. The patient was discharged home in good condition with their prescriptions and follow up information. Undiagnosed new problem with uncertain prognosis? @ -No Drug Therapy requiring intensive monitoring for toxicity (Heparin, Nitro, Insulin, Cardizem)? @ -No Were any procedures done? @ -No Diagnosis/symptom? @ -Abdominal pain of unknown etiology, likely secondary to either biliary colic versus uterine fibroid Acute, or Chronic, or Acute on Chronic? @ -Acute on chronic Uncomplicated (without systemic symptoms) or Complicated (systemic symptoms)? @ -Uncomplicated Side effects of treatment? @ -No Exacerbation, Progression, or Severe Exacerbation? @ -No Poses a threat to life or bodily function? How? (Chest pain, [place], NM, pneumonia, PE, COPD, DKA, ARF, appy, cholecystitis, CVA, Diverticulitis, Homicidal, Suicidal, threat to staff... and all critical care pts) @ -Unlikely at this time - Lab Data Result diagrams: 07/05/24 14:52 07/05/24 14:52 Lab Results 07/05/24 07/05/24 07/05/24 Range/Units 14:52 14:52 14:52 WBC 9.84 (4.50-10.00) 10*3/uL RBC 4.24 (4.10-5.20) 10*6/uL Hgb 13.9 (12.0-15.0) g/dL Hct 39.4 (37.2-46.3) % MCV 92.9 (80.0-97.0) fL MCH 32.8 H (27.0-32.0) pg MCHC 35.3 (32.0-37.0) g/dL Plt Count 193 (140-440) 10*3/uL MPV 10.6 (9.5-12.2) fL Immature Gran % (Auto) 0.1 % Neutrophils % 75.8 % Lymphocytes % 18.9 % Monocytes % 4.7 % Eosinophils % 0.3 % Basophils % 0.2 % Immature Gran # 0.01 (0.00-0.04) 10*3/uL Neutrophils # 7.46 (1.80-7.70) 10*3/uL Lymphocytes # 1.86 (0.90-5.00) 10*3/uL Monocytes # 0.46 (0.20-1.00) 10*3/uL Eosinophils # 0.03 L (0.04-0.35) 10*3/uL Basophils # 0.02 (0.00-0.10) 10*3/uL PT 10.3 (10.0-12.5) sec INR 0.9 (<1.2) APTT 22.6 (22.0-30.0) sec Sodium 136 L (137-145) mmol/L Potassium 3.9 (3.5-5.1) mmol/L Chloride 106 (98-107) mmol/L Carbon Dioxide 21 L (22-30) mmol/L Anion Gap 9 mmol/L BUN 9 (7-17) mg/dL Creatinine 0.51 L (0.52-1.04) mg/dL Est GFR (CKD-EPI)AfAm >90 (>60 ml/min/1.73 sqM) Est GFR (CKD-EPI)NonAf >90 (>60 ml/min/1.73 sqM) Glucose 86 (74-99) mg/dL Plasma Lactic Acid Josh (0.7-2.0) mmol/L Calcium 10.3 H (8.4-10.2) mg/dL Total Bilirubin 0.9 (0.2-1.3) mg/dL AST 26 (14-36) U/L ALT 18 (4-34) U/L Alkaline Phosphatase 48 (38-126) U/L Total Protein 7.0 (6.3-8.2) g/dL Albumin 4.3 (3.5-5.0) g/dL Amylase 49 (30-110) U/L Lipase 84 (23-300) U/L Urine Color Urine Appearance (Clear) Urine pH (5.0-8.0) Ur Specific [place] (1.001-1.035) Urine Protein (Negative) Urine Glucose (UA) (Negative) Urine Ketones (Negative) Urine Blood (Negative) Urine Nitrite (Negative) Urine Bilirubin (Negative) Urine Urobilinogen (<2.0) mg/dL Ur Leukocyte Esterase (Negative) 07/05/24 07/05/24 Range/Units 14:52 15:35 WBC (4.50-10.00) 10*3/uL RBC (4.10-5.20) 10*6/uL Hgb (12.0-15.0) g/dL Hct (37.2-46.3) % MCV (80.0-97.0) fL MCH (27.0-32.0) pg MCHC (32.0-37.0) g/dL Plt Count (140-440) 10*3/uL MPV (9.5-12.2) fL Immature Gran % (Auto) % Neutrophils % % Lymphocytes % % Monocytes % % Eosinophils % % Basophils % % Immature Gran # (0.00-0.04) 10*3/uL Neutrophils # (1.80-7.70) 10*3/uL Lymphocytes # (0.90-5.00) 10*3/uL Monocytes # (0.20-1.00) 10*3/uL Eosinophils # (0.04-0.35) 10*3/uL Basophils # (0.00-0.10) 10*3/uL PT (10.0-12.5) sec INR (<1.2) APTT (22.0-30.0) sec Sodium (137-145) mmol/L Potassium (3.5-5.1) mmol/L Chloride (98-107) mmol/L Carbon Dioxide (22-30) mmol/L Anion Gap mmol/L BUN (7-17) mg/dL Creatinine (0.52-1.04) mg/dL Est GFR (CKD-EPI)AfAm (>60 ml/min/1.73 sqM) Est GFR (CKD-EPI)NonAf (>60 ml/min/1.73 sqM) Glucose (74-99) mg/dL Plasma Lactic Acid Josh 1.1 (0.7-2.0) mmol/L Calcium (8.4-10.2) mg/dL Total Bilirubin (0.2-1.3) mg/dL AST (14-36) U/L ALT (4-34) U/L Alkaline Phosphatase (38-126) U/L Total Protein (6.3-8.2) g/dL Albumin (3.5-5.0) g/dL Amylase (30-110) U/L Lipase (23-300) U/L Urine Color Colorless Urine Appearance Clear (Clear) Urine pH 5.5 (5.0-8.0) Ur Specific [place] 1.003 (1.001-1.035) Urine Protein Negative (Negative) Urine Glucose (UA) Negative (Negative) Urine Ketones Negative (Negative) Urine Blood Negative (Negative) Urine Nitrite Negative (Negative) Urine Bilirubin Negative (Negative) Urine Urobilinogen <2.0 (<2.0) mg/dL Ur Leukocyte Esterase Negative (Negative) - EKG Data -: EKG Interpreted by Me EKG Comments: 12-lead Electrocardiogram Interpretation Note EKG was reviewed and interpreted by myself. 12-lead ECG performed at 1522 is interpreted by me as revealing normal sinus rhythm at a rate of 77 beats per minute. [place] is normal. SC interval is 150 ms, QRS duration is 93 ms, QTc is 411 ms.. There were no ST or T wave abnormalities to suggest myocardial ischemia or injury. R wave progression across the precordium was satisfactory. By my interpretation this EKG is non-diagnostic for acute ischemia. Disposition Clinical Impression: Uterine fibroid, Biliary colic, Abdominal pain of unknown etiology Disposition: HOME SELF-CARE Condition: Good Instructions (If sedation given, give patient instructions): Abdominal Pain (ED) Additional Instructions: Your workup today does show a gallstone but also a large uterine fibroid. Either could be given the cause of your nonspecific somewhat chronic abdominal pain. Follow-up with your GAUGE AND WEIGH MACHINE ADJUSTER as well as director loan and PCP. Return if any worsening symptoms. Is patient prescribed a controlled substance at d/c from ED?: No Referrals: Neo Andrew MD [Primary Care Provider] - 1-2 days Time of Disposition: 17:19
[2024-07-05 17:25] VITALS: BP 136/89; PULSE 68; RESP 18; TEMP 98
== END 2024-07-05 17:26 | disposition home or self-care (01) ==
LOC: EC 13:58
DX: K80.70 Calculus of gallbladder and bile duct without cholecystitis without obstruction (principal); D25.9 Leiomyoma of uterus, unspecified
CPT/HCPCS: 36415; 93005; 80053; 82150; 83605; 83690; 85025; 85610; 85730; 81003; 76705; 74177; 99284; 96374; 96375; 96361 ×3; J2405; Q9967; J2470

== ENCOUNTER 2024-09-28 19:33 | Emergency (ER) | payer BC ==
--- NOTE | 2024-09-28 20:19 | ED ---
General Adult HPI - General Chief complaint: Skin/Abscess/Foreign Body Stated complaint: Post op infection Time Seen by Provider: 09/28/24 20:05 Source: patient Mode of arrival: ambulatory Limitations: no limitations - History of Present Illness Initial comments: 44-year-old female presenting with chief complaint of redness around her surgical incision. Patient had a hysterectomy at an outside facility on 09/14. She noticed yesterday that there is a bit of redness forming around her incision. States that 1 area looks to have some pus in it, she did not express any pus from the incision. No fever. She is having some mild increased tenderness around the incision. No bleeding or wound dehiscence. She has a follow-up appointment with her surgeon on Wednesday - Related Data Home Medications Medication Instructions Recorded Confirmed Multivitamins, Thera [Multivitamin 1 tab PO DAILY 12/22/16 07/05/24 (formulary)] azaTHIOprine [Imuran] 200 mg PO DAILY 03/20/22 07/05/24 Ascorbic Acid [Vitamin C] 500 mg PO DAILY 07/05/24 07/05/24 Cholecalciferol [Vitamin D3 (25 25 mcg PO DAILY 07/05/24 07/05/24 Mcg = 1000 Iu)] Creatine 5 gm PO DAILY 07/05/24 07/05/24 Cyanocobalamin (Vitamin B-12) 1,000 mcg PO DAILY 07/05/24 07/05/24 [Vitamin B-12] Infliximab(Unknown Dose) 800 ml IV Q28D 07/05/24 07/05/24 Previous Rx's Medication Instructions Recorded Cephalexin [Keflex] 500 mg PO Q6HR 7 Days #28 cap 09/28/24 Sulfamethox-Tmp 800-160Mg [Bactrim 1 tab PO Q12HR 7 Days #14 tab 09/28/24 DS 800-160 mg] Allergies Allergy/AdvReac Type Severity Reaction Status Date / Time No Known Allergies Allergy Verified 09/28/24 19:42 Review of Systems ROS Statement: Those systems with pertinent positive or pertinent negative responses have been documented in the HPI. ROS Other: All systems not noted in ROS Statement are negative. Past Medical History Additional Past Medical History / Comment(s): crohns History of Any Multi-Drug Resistant Organisms: None Reported Past Surgical History: No Surgical Hx Reported, Hysterectomy Past Psychological History: No Psychological Hx Reported Smoking Status: Never smoker Past Alcohol Use History: Rare Past Drug Use History: None Reported General Exam Limitations: no limitations General appearance: alert, in no apparent distress Head exam: Present: atraumatic, normocephalic, normal inspection Eye exam: Present: normal appearance, EOMI Neck exam: Present: normal inspection. Absent: meningismus Respiratory exam: Absent: respiratory distress Cardiovascular Exam: Present: regular rate Neurological exam: Present: alert, oriented X3 Psychiatric exam: Present: normal affect, normal mood Skin exam: Present: erythema (Small amount of erythema surrounding the incision) Course Vital Signs 09/28/24 19:40 Temperature 98.0 F Pulse Rate 76 Respiratory 17 Rate Blood Pressure 146/89 O2 Sat by Pulse 99 Oximetry Medical Decision Making - Medical Decision Making Was pt. sent in by a medical professional or institution ([facility], DENTAL HYGIENE INSTRUCTOR, urgent care, hospital, or long term...) When possible be specific @ -No Did you speak to anyone other than the patient for history (EMS, parent, family, police, friend...)? What history was obtained from this source @ -No Did you review nursing and triage notes (agree or disagree)? Why? @ -I reviewed and agree with nursing and triage notes Were old charts reviewed (outside hosp., previous admission, EMS record, old EKG, old radiological studies, urgent care reports/EKG's, long term records)? Report findings @ -No old charts were reviewed Differential Diagnosis (chest pain, altered mental status, abdominal pain women, abdominal pain men, vaginal bleeding, weakness, fever, dyspnea, syncope, headache, dizziness, GI bleed, back pain, seizure, CVA, palpatations, mental health, musculoskeletal)? @ -Differential includes cellulitis, abscess, allergic reaction, not an all- inclusive list EKG interpreted by me (3pts min.). @ -As above X-rays interpreted by me (1pt min.). @ -None done CT interpreted by me (1pt min.). @ -None done U/S interpreted by me (1pt. min.). @ -None done What testing was considered but not performed or refused? (CT, X-rays, U/S, labs)? Why? @ -None What meds were considered but not given or refused? Why? @ -None Did you discuss the management of the patient with other professionals (professionals i.e. , PA, DENTAL HYGIENE INSTRUCTOR, lab, RT, psych nurse, social work program coordinator, system dispatcher, te acher, security officers and guards, porter sample case)? Give summary @ -No Was smoking cessation discussed for >3mins.? @ -No Was critical care preformed (if so, how long)? @ -No Were there social determinants of health that impacted care today? How? (Homelessness, low income, unemployed, alcoholism, drug addiction, transportation, low edu. Level, literacy, decrease access to med. care, fci, rehab)? @ -No Was there de-escalation of care discussed even if they declined (Discuss DNR or withdrawal of care, Hospice)? DNR status @ -No What co-morbidities impacted this encounter? (DM, HTN, Smoking, COPD, CAD, C ancer, CVA, ARF, Chemo, Hep., AIDS, mental health diagnosis, sleep apnea, morbid obesity)? @ -None Was patient admitted / discharged? Hospital course, mention meds given and route, prescriptions, significant lab abnormalities, going to OR and other pertinent info. @ -44-year-old female presenting with chief complaint of redness around her incision. She had a hysterectomy on 09/14. On exam there is some mild erythema with no drainage. There is no induration. No fever. Patient will be treated with Keflex and Bactrim. She will follow-up with her surgeon at her scheduled appointment on Wednesday. Follow-up with surgeon. Report back to ER with any new or worsening symptoms. Discussed return parameters and answered all questions. Patient conveyed verbal understanding and agreed to the plan. I discussed this case in detail with my attending Dr. Miramontes Undiagnosed new problem with uncertain prognosis? @ -No Drug Therapy requiring intensive monitoring for toxicity (Heparin, Nitro, Insulin, Cardizem)? @ -No Were any procedures done? @ -No Diagnosis/symptom? @ -Cellulitis Acute, or Chronic, or Acute on Chronic? @ -Acute Uncomplicated (without systemic symptoms) or Complicated (systemic symptoms)? @ -Uncomplicated Side effects of treatment? @ -No Exacerbation, Progression, or Severe Exacerbation? @ -No Poses a threat to life or bodily function? How? (Chest pain, USA, SC, pneumonia, PE, COPD, DKA, ARF, appy, cholecystitis, CVA, Diverticulitis, Homicidal, Suicidal, threat to staff... and all critical care pts) @ -Unlikely Disposition Clinical Impression: Cellulitis Disposition: HOME SELF-CARE Condition: Good Instructions (If sedation given, give patient instructions): Cellulitis (ED) Additional Instructions: Follow-up with your surgeon. Report back to ER with any new or worsening symptoms. Take medication as prescribed. Prescriptions: Sulfamethox-Tmp 800-160Mg [Bactrim DS 800-160 mg] 1 tab PO Q12HR 7 Days #14 tab Cephalexin [Keflex] 500 mg PO Q6HR 7 Days #28 cap Is patient prescribed a controlled substance at d/c from ED?: No Referrals: Neo Andrew MD [Primary Care Provider] - 1-2 days Time of Disposition: 20:19
[2024-09-28] MEDS: CEPHALEXIN 500 MG CAP PO STA (20:40)
[2024-09-28] MEDS: SULFAMETHOX-TMP 800-160MG 1 EACH TAB PO STA (20:41)
[2024-09-28 20:43] VITALS: BP 129/83; PULSE 73; RESP 19; TEMP 98.5
== END 2024-09-28 20:43 | disposition home or self-care (01) ==
LOC: EC 19:33
DX: L03.90 Cellulitis, unspecified (principal)
CPT/HCPCS: 99282